=== PATIENT | female | born 1945 | race Caucasian/White ===

== ENCOUNTER 2018-04-05 07:32 | Observation (INO) | payer OTHER ==
[2018-04-05 08:12] LABS: Protime INR 1.15
[2018-04-05 08:13] LABS: Absolute Lymphocytes (CBC) 1.1 K/uL (0.7-4.9); Absolute Monocytes 0.7 K/uL (0.1-1.3); Absolute Neutrophil 3.7 K/uL (1.8-8.0); Basophils % 0.5 % (0-1.3); Eosinophils % 0.6 % (0-4.4); Hematocrit 23.5 % (36.0-45.0); MPV 7.2 fL (7.6-11.3); Monocytes % 12.7 % (3.3-12.3); RBC Red Blood Cell Count 2.34 M/uL (3.86-4.86)
[2018-04-05 08:26] LABS: ALT/SGPT 17 U/L (12-78); AST/SGOT 64 U/L (15-37); Albumin 3.2 g/dL (3.4-5.0); Alkaline Phosphatase 93 U/L (45-117); BUN Blood Urea Nitrogen 14 mg/dL (7-18); Bicarbonate 25 mmol/L (21-32); Bilirubin Direct 0.1 mg/dL (0-0.2); Bilirubin Total 0.4 mg/dL (0.2-1.0); Glucose Level 130 mg/dL (74-106); Magnesium 2.3 mg/dL (1.8-2.4); Potassium 3.8 mmol/L (3.5-5.1); Protein, Total 6.8 g/dL (6.4-8.2); Sodium Level 143 mmol/L (136-145); Troponin (Emerg Dept Use Only) < 0.02 ng/mL (0.0-0.045)
--- NOTE | 2018-04-05 08:57 | RAD REPORT ---
EXAM DESCRIPTION: RAD - Chest Single View - 04/05/2018 8:06 am CLINICAL HISTORY: fatigue Chest pain. COMPARISON: Chest Pa And Lat (2 Views) dated 10/01/2017; CHEST SINGLE VIEW dated 10/30/2014; CHEST SIN GLE VIEW dated 11/04/2013; CHEST SINGLE VIEW dated 02/25/2012; Sinus 3/+ Views dated 10/01/2017; Chest F or Pe Angio dated 02/09/2018 FINDINGS: Portable technique limits examination quality. The lungs are grossly clear. The heart is normal in size. Diffuse sclerosis of the osseous structures noted.Port catheter is in place, unchanged. Right upper lobe gallstone. IMPRESSION: No acute intrathoracic process suspected.
[2018-04-05 09:13] LABS: Platelet Estimate ADEQ
[2018-04-05 09:14] LABS: Blood Morphology Comment NOT SEEN (NOT SEEN)
--- NOTE | 2018-04-05 09:21 | EDPHYS ---
Physician Documentation [facility] Name: Carmen Lima Age: 73 yrs Sex: Female : 1945 Arrival Date: 04/05/2018 Time: 07:34 Bed 7 Private MD: ED Physician Steven Soler HPI: 04/05 07:36 This 73 yrs old Female presents to ER via Unassigned with complaints of ps1 fatigue and pale. 07:36 Patient has metastatic stage 4 breast CA. Patient of Pant. Recent Neupogen shot. Was ps1 supposed to start chemo and Fe infusions for anemia. Now presenting weak and fatigued. No fever, cough, or urinary complaints. No CP. No hx of transfusions. Had flu-like illness earlier in the month. . Historical: - Allergies: 07:53 PENICILLINS; ca1 - Home Meds: 07:53 [place] Thyroid 15 mg Oral tab 15 mg daily [Active]; ca1 - PMHx: 07:53 Thyroid problem; Cancer, Breast; ca1 - PSHx: 07:53 Mastectomy, Left; Hysterectomy; Bladder Sling; ca1 - Immunization history:: Pneumococcal vaccine is not up to date. - Social history:: Smoking status: Patient/guardian denies using tobacco. - Ebola Screening: : No symptoms or risks identified at this time. ROS: 07:36 ENT: Negative for injury, pain, and discharge, Neck: Negative for injury, pain, and ps1 swelling, Cardiovascular: Negative for chest pain, palpitations, and edema, Respiratory: Negative for shortness of breath, cough, wheezing, and pleuritic chest pain, Abdomen/GI: Negative for abdominal pain, nausea, vomiting, diarrhea, and constipation, MS/Extremity: Negative for injury and deformity, Neuro: Negative for headache, weakness, numbness, tingling, and seizure. 07:36 Constitutional: Positive for fatigue, malaise. 07:36 Skin: Positive for pallor. Exam: 07:36 Constitutional: This is a well developed, well nourished patient who is awake, alert, ps1 and in no acute distress. Head/Face: Normocephalic, atraumatic. Eyes: Pupils equal round and reactive to light, extra-ocular motions intact. Lids and lashes normal. Conjunctiva and sclera are non-icteric and not injected. Cardiovascular: Regular rate and rhythm. No gallops, murmurs, or rubs. Normal PMI, no JVD. No pulse deficits. Respiratory: Lungs have equal breath sounds bilaterally, clear to auscultation and percussion. No rales, rhonchi or wheezes noted. No increased work of breathing, no retractions or nasal flaring. Abdomen/GI: Soft, non-tender, with normal bowel sounds. No distension or tympany. No guarding or rebound. No evidence of tenderness throughout. MS/ Extremity: Pulses equal, no cyanosis. Neurovascular intact. Full, normal range of motion. Neuro: Awake and alert, GCS 15, oriented to person, place, time, and situation. Cranial nerves II-XII grossly intact. Sensory grossly intact. Psych: Awake, alert, with orientation to person, place and time. Behavior, mood, and affect are within normal limits. 07:36 Chest/axilla: Inspection: normal, Palpation: is normal, post mastectomy, has port in right chest. 07:36 Skin: Appearance: Pallor. Vital Signs: 07:35 BP 133 / 59; Pulse 85; Resp 18; Temp 97.9; Pulse Ox 100% on R/A; Weight 52.16 kg; ca1 Height 5 ft. 2 in. (157.48 cm); Pain 0/10; 08:44 BP 121 / 55; Pulse 81; Resp 20; Pulse Ox 98% on R/A; ca1 09:29 BP 118 / 58; Pulse 80; Resp 19; Pulse Ox 100% on R/A; ca1 10:12 BP 113 / 61; Pulse 85; Resp 19; Pulse Ox 100% on R/A; ca1 10:41 BP 122 / 61; Pulse 91; Resp 19; Pulse Ox 100% on R/A; ca1 11:22 BP 117 / 58; Pulse 83; Resp 17; Pulse Ox 97% on R/A; ca1 07:35 Body Mass Index 21.03 (52.16 kg, 157.48 cm) ca1 MDM: 07:51 Patient medically screened. ps1 04/05 07:40 Order name: CBC with Diff; Complete Time: 09:15 ps1 04/05 07:40 Order name: LFT's; Complete Time: 08:59 ps1 04/05 07:40 Order name: Magnesium; Complete Time: 08:59 ps1 04/05 07:40 Order name: PT-INR; Complete Time: 08:59 ps1 04/05 07:40 Order name: Troponin (emerg Dept Use Only); Complete Time: 08:59 ps1 04/05 07:40 Order name: CMP; Complete Time: 08:59 ps1 04/05 07:40 Order name: XRAY Chest (1 view); Complete Time: 08:59 ps1 04/05 07:40 Order name: Cardiac monitoring; Complete Time: 07:43 ps1 04/05 07:40 Order name: EKG - Nurse/Tech; Complete Time: 08:00 ps1 04/05 07:40 Order name: IV Saline Lock; Complete Time: 07:55 ps1 04/05 07:40 Order name: Type And Screen ps1 04/05 08:11 Order name: EKG Electrocardiogram; Complete Time: 09:50 EDMS 04/05 08:53 Order name: ABO/RH no charge; Complete Time: 08:59 EDMS 04/05 09:13 Order name: Manual Differential; Complete Time: 09:15 EDMS 04/05 07:40 Order name: Labs collected and sent; Complete Time: 08:00 [facility] 04/05 07:40 Order name: O2 Per Protocol; Complete Time: 07:43 ps1 04/05 07:40 Order name: O2 Sat Monitoring; Complete Time: 07:43 ps1 Administered Medications: No medications were administered Disposition: 04/05/18 09:20 Hospitalization ordered by Domitila Naik for Observation. Preliminary diagnosis is Symptomatic anemia. - Bed requested for Telemetry/MedSurg (observation). - Status is Observation. ca1 - Condition is Fair. - Problem is chronic. - Symptoms have worsened. UTI on Admission? No Signatures: Dispatcher [employer] EDMS Char Ptits Phillip, MD MD ps1 Miracle Roman RN RN ca1 Corrections: (The following items were deleted from the chart) 10:53 09:20 Hospitalization Ordered by Domitila Naik MD for Observation. Preliminary bd diagnosis is Symptomatic anemia. Bed requested for Telemetry/MedSurg (observation). Status is Observation. Condition is Fair. Problem is chronic. Symptoms have worsened. UTI on Admission? No. ps1 11:28 10:53 04/05/2018 09:20 Hospitalization Ordered by Domitila Naik MD for Observation. ca1 Preliminary diagnosis is Symptomatic anemia. Bed requested for Telemetry/MedSurg (observation). Status is Observation. Condition is Fair. Problem is chronic. Symptoms have worsened. UTI on Admission? No. bd
--- NOTE | 2018-04-05 09:21 | ER ---
Nurse's Notes [facility] Name: Carmen iLma Age: 73 yrs Sex: Female : 1945 Arrival Date: 04/05/2018 Time: 07:34 Bed 7 Private MD: Diagnosis: Symptomatic anemia Presentation: 04/05 07:35 Presenting complaint: EMS states: patient is a stage 4 Breast Cancer patient and has ca1 not started Chemo yet. She has been having diarrhea for more than 3 days and been weak for 3 days now. States also feeling dizzy. 07:35 Transition of care: patient was not received from another setting of care. Onset of ca1 symptoms was April 03, 2018. Risk Assessment: Do you want to hurt yourself or someone else? Patient reports no desire to harm self or others. Initial Sepsis Screen: Does the patient meet any 2 criteria? No. Patient's initial sepsis screen is negative. Does the patient have a suspected source of infection? No. Patient's initial sepsis screen is negative. Care prior to arrival: Medication(s) given: Normal saline infusion, 250 IV initiated. 20 GA, in the right antecubital area. 07:35 Method Of Arrival: EMS: [facility] ca1 07:35 Acuity: GWEN 3 ca1 Historical: - Allergies: 07:53 PENICILLINS; ca1 - Home Meds: 07:53 [place] Thyroid 15 mg Oral tab 15 mg daily [Active]; ca1 - PMHx: 07:53 Thyroid problem; Cancer, Breast; ca1 - PSHx: 07:53 Mastectomy, Left; Hysterectomy; Bladder Sling; ca1 - Immunization history:: Pneumococcal vaccine is not up to date. - Social history:: Smoking status: Patient/guardian denies using tobacco. - Ebola Screening: : No symptoms or risks identified at this time. Screenin:53 Abuse screen: Denies threats or abuse. Denies injuries from another. Nutritional ca1 screening: No deficits noted. Tuberculosis screening: No symptoms or risk factors identified. Fall Risk None identified. Assessment: 07:48 General: Appears in no apparent distress. Behavior is calm, cooperative, appropriate ca1 for age. Pain: Denies pain. Neuro: Level of Consciousness is awake, alert, obeys commands, Oriented to person, place, time, situation. Neuro: Reports dizziness. Cardiovascular: Heart tones S1 S2 present Capillary refill < 3 seconds Patient's skin is warm and dry. Respiratory: Airway is patent Trachea midline Respiratory effort is even, unlabored, Respiratory pattern is regular, symmetrical, Breath sounds are clear bilaterally. GI: Abdomen is flat, non-distended, Bowel sounds present X 4 quads. Abd is soft and non tender X 4 quads. : No signs and/or symptoms were reported regarding the genitourinary system. EENT: No signs and/or symptoms were reported regarding the EENT system. Derm: Skin is intact, Skin is dry, Skin is pale, Skin temperature is warm. Musculoskeletal: Circulation, motion, and sensation intact. Capillary refill < 3 seconds. 08:44 Reassessment: Patient appears in no apparent distress at this time. No changes from ca1 previously documented assessment. Patient and/or family updated on plan of care and expected duration. Pain level reassessed. Patient is alert, oriented x 3, equal unlabored respirations, skin warm/dry/pink. 09:29 Reassessment: Patient appears in no apparent distress at this time. Patient and/or ca1 family updated on plan of care and expected duration. Pain level reassessed. Patient is alert, oriented x 3, equal unlabored respirations, skin warm/dry/pink. at bedside, reading the Bible. 10:12 Reassessment: Patient appears in no apparent distress at this time. Patient and/or ca1 family updated on plan of care and expected duration. Pain level reassessed. Patient is alert, oriented x 3, equal unlabored respirations, skin warm/dry/pink. Awaiting admitting orders. 10:41 Reassessment: Patient appears in no apparent distress at this time. Patient and/or ca1 family updated on plan of care and expected duration. Pain level reassessed. Patient is alert, oriented x 3, equal unlabored respirations, skin warm/dry/pink. Awaiting room assignment. Family still at bedside. 11:02 Reassessment: Called 2nd floor for report. Nurse will call back when ready. ca1 11:20 Reassessment: Pt states she is lactose intolerant. Called and informed nurse on 2nd ca1 floor. 11:22 Reassessment: Patient appears in no apparent distress at this time. Patient is alert, ca1 oriented x 3, equal unlabored respirations, skin warm/dry/pink. Vital Signs: 07:35 BP 133 / 59; Pulse 85; Resp 18; Temp 97.9; Pulse Ox 100% on R/A; Weight 52.16 kg; ca1 Height 5 ft. 2 in. (157.48 cm); Pain 0/10; 08:44 BP 121 / 55; Pulse 81; Resp 20; Pulse Ox 98% on R/A; ca1 09:29 BP 118 / 58; Pulse 80; Resp 19; Pulse Ox 100% on R/A; ca1 10:12 BP 113 / 61; Pulse 85; Resp 19; Pulse Ox 100% on R/A; ca1 10:41 BP 122 / 61; Pulse 91; Resp 19; Pulse Ox 100% on R/A; ca1 11:22 BP 117 / 58; Pulse 83; Resp 17; Pulse Ox 97% on R/A; ca1 07:35 Body Mass Index 21.03 (52.16 kg, 157.48 cm) ca1 ED Course: 07:34 Patient arrived in ED. jl7 07:35 Stveen Soler MD is Attending Physician. ps1 07:35 Arm band placed on right wrist. ca1 07:42 Miracle Roman RN is Primary Nurse. ca1 07:46 Triage completed. ca1 07:53 Patient has correct armband on for positive identification. Placed in gown. Bed in low ca1 position. Call light in reach. Side rails up X2. security monitor on. Pulse ox on. NIBP on. Warm blanket given. 07:53 Maintain EMS IV. Dressing intact. Good blood return noted. Site clean \T\ dry. Gauge \T\ ca 1 site: g20 at [facility]. 08:01 X-ray completed. Portable x-ray completed in exam room. Patient tolerated procedure jb2 well. 08:03 XRAY Chest (1 view) In Process Unspecified. EDMS 08:03 EKG done, by bench lay out technician. reviewed by Steven Soler MD. tc 09:19 Domitila Naik MD is Hospitalizing Provider. ps1 10:40 No provider procedures requiring assistance completed. Patient admitted, IV remains in ca1 place. Administered Medications: No medications were administered Outcome: 09:20 Decision to Hospitalize by Provider. ps1 11:20 Admitted to Med/surg accompanied by tech, via wheelchair, room 212, with chart, Report ca1 called to Hyun Amezquita RN 11:20 Condition: stable 11:20 Instructed on the need for admit, Demonstrated understanding of instructions. 11:28 Patient left the ED. ca1 Signatures: Dispatcher [employer] EDMS Nagi Kaplan2 Davina Redman, retirement officer EKG [facility] Delma Prasad RN RN jl7 Steven Soler MD MD ps1 Miracle Roman RN RN ca1
[2018-04-05] MEDS ORDERED: ONDANSETRON 4 MG/2 ML VIAL IV PRN (11:46)
--- NOTE | 2018-04-05 11:59 | EKG ---
Test Date: 2018-04-05 Test Time: 07:53:42 Franchise Manager: MIGUEL MEASUREMENT RESULTS: Intervals: Rate: 77 NC: 150 QRSD: 72 QT: 392 QTc: 443 [place]: P: 81 NC: 150 QRS: 80 T: 80 INTERPRETIVE STATEMENTS: Normal sinus rhythm Nonspecific ST abnormality Abnormal ECG Compared to ECG 10/30/2014 16:12:15 ST (T wave) deviation now present Electronically Signed On 04-05-18 11:58:21 TIRE RECAPPING MACHINE OPERATOR by Baldemar Moreno
[2018-04-05] MEDS: NA CHLORIDE 0.9% 1,000 ML IV SCH ×2 (12:05→23:08)
[2018-04-05 14:43] VITALS: BMI 20.9
[2018-04-05] MEDS: ACETAMINOPHEN 500 MG TAB PO PRN (16:56)
--- NOTE | 2018-04-05 17:18 | P.HP ---
Certification for Inpatient Patient admitted to: Observation With expected LOS: <2 Midnights Patient will require the following post-hospital care: None Practitioner: I am a practitioner with admitting privileges, knowledge of patient current condition, hospital course, and medical plan of care. Services: Services provided to patient in accordance with Admission requirements found in Title 42 Section 412.3 of the Code of Federal Regulations Patient History Date of Service: 04/05/18 Primary Care Provider: Dr Campbell Reason for admission: Weakness History of Present Illness: 73 y/o F with Pmhx of Stage 4 Breast CA s/p Mastectomy, Mets to bone and liver, Hypothyrodism and Anemia who presented to the ER c/o Weakness and diarrhea. Patient stated she has been feeling unwell for quite some time but recently started noticing she was having more weakness and diarrhea. Diarrhea has resolved now but Weakness continues. She was recently seen by her oncologist and was prescribed neupogen for Leukopenia and Antibiotics to prevent infection. Pt was taking the medication however states that neupogen would make her sick and give SCANLON. Her last dose for abx was today however she was not able to take it. Pt has been off the chemo for past 3 week due to Anemia and being weak. She has been taking chemo since 2012 on/off. She was going to be switched to the diff Chemo drug once she is restarted. Pt states along with weakness and diarrhea she has been having low grade fever of 99.7 and cough for over 6 months now. Denies having Chest pain, SOB, N/V or Abd pain at this time. Diarrhea is loose in nature and no blood is noted. In the ER pt was found to be anemic, and thus was admitted to the hospital for further care and treatment Allergies codeine Allergy (Verified 10/30/14 20:03) nausea iodine Allergy (Verified 04/05/18 17:11) Rash Iodine and Iodide Containing Produc Allergy (Verified 04/05/18 12:19) Rash Penicillins Allergy (Verified 10/30/14 20:03) Rash Home Medications: Thyroid,Pork [[place] Thyroid] 15 mg PO [id number] 10/30/14 - Past Medical/Surgical History Has patient received pneumonia vaccine in the past: No Diabetic: No -: Breast Cancer, Oncology-Dr. Kinney, Originally seen at [facility], [id number] -: Lymphedema -: Hypothyroidism -: Diverticulosis -: Metastasis to the bone -: Lactose intolerance -: Right chest port a cath -: Left Mastectomy -: Hysterectomy with BSO -: Bladder suspension Psychosocial/ Personal History: for 22 years, 5 children, Previously worked as a brand marketing manager for [employer] - Family History Father -: Diabetes, Cancer Notes: colon Ca. stomach Ca Mother -: Hypertension - Social History Smoking Status: Never smoker Alcohol use: No CD- Drugs: No Caffeine use: No Place of Residence: Home Review of Systems 10-point ROS is otherwise unremarkable Physical Examination - Vital Signs Temperature: 97.5 F Blood Pressure: 136/65 Pulse: 85 Respirations: 16 Pulse Ox (%): 96 - Physical Exam General: Alert, In no apparent distress HEENT: Atraumatic, PERRLA, Mucous membr. moist/pink, EOMI, Sclerae nonicteric Neck: Supple, 2+ carotid pulse no bruit, No LAD, Without JVD or thyroid abnormality Respiratory: Clear to auscultation bilaterally, Normal air movement Cardiovascular: Regular rate/rhythm, Normal S1 S2 Gastrointestinal: Normal bowel sounds, No tenderness Musculoskeletal: No tenderness Integumentary: No rashes Neurological: Normal gait, Normal speech, Normal strength at 5/5 x4 extr, Normal tone, Normal affect Lymphatics: No axilla or inguinal lymphadenopathy - Studies Laboratory Data (last 24 hrs) 04/05/18 07:50: PT 13.6 H, INR 1.15 04/05/18 07:50: Sodium 143, Potassium 3.8, BUN 14, Creatinine 0.74, Glucose 130 H, Magnesium 2.3, Total Bilirubin 0.4, AST 64 H, ALT 17, Alkaline Phosphatase 93 04/05/18 07:50: WBC 5.6, Hgb 8.0 L, Hct 23.5 L, Plt Count 165 Assessment and Plan - Problems (Diagnosis) (1) Weakness Current Visit: Yes Status: Acute Plan: Most Likely 2.2 to Advancing CA/Anemia and Diarrhea -IV fluids for now -PT consulted. Awaiting reccs -F.u with Dr Kinney (2) Diarrhea Current Visit: Yes Status: Acute Plan: Diarrhea Now resolved. -IV fluids for now -Monitor closely -Will get stool culture if needed Qualifiers: Diarrhea type: unspecified type Qualified Code(s): R19.7 - Diarrhea, unspecified (3) Breast cancer Onset Date: 10/31/14 Current Visit: No Status: Chronic Plan: Stage IV breast CA with Mets to bone and liver -Diagnosed at [facility] in 2012 -S.p Mastectomy and has been on Chemo. -Currently chemo on hold due to Weakness and anemia -F.u with oncology Qualifiers: Breast location: unspecified site of breast Estrogen receptor status: unspecified Patient sex: female Laterality: unspecified laterality Qualified Code(s): C50.919 - Malignant neoplasm of unspecified site of unspecified female breast (4) Hypothyroidism Onset Date: 10/31/14 Current Visit: No Status: Chronic Plan: Restart Home medication Qualifiers: Hypothyroidism type: acquired Qualified Code(s): E03.9 - Hypothyroidism, unspecified Discharge Plan: Home Plan to discharge in: 48 Hours - Advance Directives Does patient have a Living Will: Yes Does patient have a Durable POA for Healthcare: Yes - Code Status/Comfort Care Code Status Assessed: Yes Critical Care: No
[2018-04-06] MEDS: ACETAMINOPHEN 500 MG TAB PO PRN ×2 (03:56→10:36)
[2018-04-06 04:47] LABS: Urine Appearance CLEAR; Urine Bilirubin NEGATIVE (NEG); Urine Blood NEGATIVE (NEG); Urine Color YELLOW; Urine Glucose NEGATIVE (NEG); Urine Protein NEGATIVE (NEG); Urine Urobilinogen 0.2 mg/dL (0.2-1.0)
[2018-04-06 04:58] LABS: Urine Microscopic Reflex NO UMIC
[2018-04-06] MEDS ORDERED: THYROID PORK 15 MG PO SCH (06:00)
[2018-04-06] MEDS ORDERED: THYROID 30 MG TAB PO SCH (06:00)
[2018-04-06 06:12] LABS: Absolute Lymphocytes (CBC) 1.3 K/uL (0.7-4.9); Absolute Monocytes 0.6 K/uL (0.1-1.3); Absolute Neutrophil 3.1 K/uL (1.8-8.0); Basophils % 0.6 % (0-1.3); Eosinophils % 0.5 % (0-4.4); Hematocrit 21.4 % (36.0-45.0); Monocytes % 12.4 % (3.3-12.3); RBC Red Blood Cell Count 2.13 M/uL (3.86-4.86)
[2018-04-06 06:23] LABS: ALT/SGPT 14 U/L (12-78); AST/SGOT 60 U/L (15-37); Alkaline Phosphatase 85 U/L (45-117); BUN Blood Urea Nitrogen 11 mg/dL (7-18); Bicarbonate 25 mmol/L (21-32); Bilirubin Total 0.4 mg/dL (0.2-1.0); Glucose Level 96 mg/dL (74-106); Potassium 3.9 mmol/L (3.5-5.1); Protein, Total 6.2 g/dL (6.4-8.2); Sodium Level 146 mmol/L (136-145)
[2018-04-06] MEDS: NA CHLORIDE 0.9% 1,000 ML IV SCH (07:46)
[2018-04-06] MEDS ORDERED: NA CHLORIDE 0.9% 250 ML ONE (10:35)
[2018-04-06 11:42] VITALS: O2SAT 96
[2018-04-06 14:45] VITALS: BP 128/63; TEMP 98.4
--- NOTE | 2018-04-06 16:04 | P.SSS ---
Patient History Date of Service: 04/06/18 Primary Care Provider: Dr Campbell Reason for admission: Weakness History of Present Illness: 73 y/o F with Pmhx of Stage 4 Breast CA s/p Mastectomy, Mets to bone and liver, Hypothyrodism and Anemia who presented to the ER c/o Weakness and diarrhea. Patient stated she has been feeling unwell for quite some time but recently started noticing she was having more weakness and diarrhea. Diarrhea has resolved now but Weakness continues. She was recently seen by her oncologist and was prescribed neupogen for Leukopenia and Antibiotics to prevent infection. Pt was taking the medication however states that neupogen would make her sick and give SCANLON. Her last dose for abx was today however she was not able to take it. Pt has been off the chemo for past 3 week due to Anemia and being weak. She has been taking chemo since 2011 on/off. She was going to be switched to the diff Chemo drug once she is restarted. Pt states along with weakness and diarrhea she has been having low grade fever of 99.7 and cough for over 6 months now. Denies having Chest pain, SOB, N/V or Abd pain at this time. Diarrhea is loose in nature and no blood is noted. In the ER pt was found to be anemic, and thus was admitted to the hospital for further care and treatment Allergies codeine Allergy (Verified 10/30/14 20:03) nausea iodine Allergy (Verified 04/05/18 17:11) Rash Iodine and Iodide Containing Produc Allergy (Verified 04/05/18 12:19) Rash Penicillins Allergy (Verified 10/30/14 20:03) Rash Home Medications: Thyroid,Pork [[place] Thyroid] 15 mg PO [id number] 10/30/14 - Past Medical/Surgical History Has patient received pneumonia vaccine in the past: No Diabetic: No -: Breast Cancer, Oncology-Dr. Kinney, Originally seen at [facility], [id number] -: Lymphedema -: Hypothyroidism -: Diverticulosis -: Metastasis to the bone -: Lactose intolerance -: Right chest port a cath -: Left Mastectomy -: Hysterectomy with BSO -: Bladder suspension Psychosocial/ Personal History: for 22 years, 5 children, Previously worked as a government affairs manager for [employer] - Family History Father -: Diabetes, Cancer Notes: colon Ca. stomach Ca Mother -: Hypertension - Social History Smoking Status: Never smoker Alcohol use: No CD- Drugs: No Caffeine use: No Place of Residence: Home Review of Systems 10-point ROS is otherwise unremarkable Physical Examination - Vital Signs Temperature: 98.4 F Blood Pressure: 128/63 Pulse: 85 Respirations: 16 Pulse Ox (%): 98 - Physical Exam General: Alert, In no apparent distress HEENT: Atraumatic, PERRLA, Mucous membr. moist/pink, EOMI, Sclerae nonicteric Neck: Supple, 2+ carotid pulse no bruit, No LAD, Without JVD or thyroid abnormality Respiratory: Clear to auscultation bilaterally, Normal air movement Cardiovascular: Regular rate/rhythm, Normal S1 S2 Gastrointestinal: Normal bowel sounds, No tenderness Musculoskeletal: No tenderness Integumentary: No rashes Neurological: Normal gait, Normal speech, Normal strength at 5/5 x4 extr, Normal tone, Normal affect Lymphatics: No axilla or inguinal lymphadenopathy - Diagnosis (Problem(s)) (1) Weakness Onset Date: 04/06/18 Current Visit: Yes Status: Resolved (2) Diarrhea Onset Date: 04/06/18 Current Visit: Yes Status: Resolved Qualifiers: Diarrhea type: unspecified type Qualified Code(s): R19.7 - Diarrhea, unspecified (3) Breast cancer Onset Date: 10/31/14 Current Visit: No Status: Chronic Plan: Stage IV breast CA with Mets to bone and liver -Diagnosed at [facility] in 2011 -S.p Mastectomy and has been on Chemo. -Currently chemo on hold due to Weakness and anemia -F.u with oncology Qualifiers: Breast location: unspecified site of breast Estrogen receptor status: unspecified Patient sex: female Laterality: unspecified laterality Qualified Code(s): C50.919 - Malignant neoplasm of unspecified site of unspecified female breast (4) Hypothyroidism Onset Date: 10/31/14 Current Visit: No Status: Chronic Qualifiers: Hypothyroidism type: acquired Qualified Code(s): E03.9 - Hypothyroidism, unspecified Treatment Summary: Overall during the hospital stay patient remained stable Initially patient was admitted to the hospital for generalized weakness and possibility of anemia. Patient had a hemoglobin of 10.5 on admission. Which did drop down to 6.8 on day 2 of admission. Some of it could be hemodilution all. Patient did not have any signs of GI bleeding. Patient was transfused 1 unit. Her anemia is most likely secondary to bone marrow suppression secondary to chemotherapy medication. Patient hemoglobin did increase more than 8. Patient worked with physical therapy here in the hospital for her generalized weakness did well overall. Patient was feeling much better, was able to ambulate and tolerate her diet and thus was discharged home and was asked to follow up with oncology in primary care provider in about 1-2 days post discharge. - Disposition Disposition: ROUTINE DISCHARGE Condition: GOOD Diet: Regular Activity: Ad star
[2018-04-06 16:29] LABS: Hematocrit 28.4 % (36.0-45.0)
== END 2018-04-06 18:25 | disposition home or self-care (01) ==
LOC: ER 07:32 → ERHOLD 10:19 → 2ND 11:21
PROVIDERS: ADMIT Family Medicine; ATTEND Family Medicine
PROC: 30233N1 Transfusion of Nonautologous Red Blood Cells into Peripheral Vein, Percutaneous Approach (ICD-10-PCS; principal; 2018-04-06)
DX: D64.9 Anemia, unspecified (principal); R53.1 Weakness; R19.7 Diarrhea, unspecified; C50.919 Malignant neoplasm of unspecified site of unspecified female breast; C78.7 Secondary malignant neoplasm of liver and intrahepatic bile duct; C79.51 Secondary malignant neoplasm of bone; E03.9 Hypothyroidism, unspecified; Z88.0 Allergy status to penicillin
CPT/HCPCS: 36415; 36430; 71045; 80053; 80076; 81003; 83735; 84484; 85014; 85018; 85025; 85610; 86850; 86900; 86901; 93005; 97163; 99285; G0378; J7030; P9016

== ENCOUNTER 2019-01-12 08:54 | Emergency (ER) | payer OTHER ==
[2019-01-12] MEDS ORDERED: LIDOCAINE JELLY 2%- 5 ML TUBE ONE (11:34)
--- NOTE | 2019-01-12 11:37 | RAD REPORT ---
EXAM DESCRIPTION: RAD - Abdomen Acute Series - 01/12/2019 11:14 am CLINICAL HISTORY: Abd pain;Constipation COMPARISON: Chest Single View dated 04/05/2018; Chest Pa And Lat (2 Views) dated 10/01/2017; CHEST SIN GLE VIEW dated 10/30/2014; CHEST SINGLE VIEW dated 11/04/2013 FINDINGS: The lungs appear clear. Cardiac size is normal. A right-sided port catheter is in place. A large amount of stool appears retained in the rectal vault suggesting fecal impaction. No bowel obst ruction or pneumoperitoneum. Diffuse sclerosis is present with areas of lucency throughout the bony s tructures compatible with metastatic disease. Gallstone is likely present in the right upper quadrant . IMPRESSION: Fecal retention is suspected in the rectum. Significant bony metastatic disease.
[2019-01-12 12:17] LABS: Absolute Lymphocytes (CBC) 0.4 K/uL (0.7-4.9); Basophils % 0.6 % (0-1.3); Hematocrit 30.2 % (36.0-45.0); Lymphocytes % 20.2 % (15.3-44.8); MPV 6.4 fL (7.6-11.3); RBC Red Blood Cell Count 3.11 M/uL (3.86-4.86)
[2019-01-12 12:34] LABS: ALT/SGPT 29 U/L (12-78); AST/SGOT 46 U/L (15-37); Albumin 3.7 g/dL (3.4-5.0); Alkaline Phosphatase 76 U/L (45-117); BUN Blood Urea Nitrogen 23 mg/dL (7-18); Bicarbonate 28 mmol/L (21-32); Bilirubin Direct 0.2 mg/dL (0-0.2); Bilirubin Total 0.8 mg/dL (0.2-1.0); Glucose Level 119 mg/dL (74-106); Lipase 61 U/L (73-393); Potassium 3.9 mmol/L (3.5-5.1); Protein, Total 6.2 g/dL (6.4-8.2); Sodium Level 142 mmol/L (136-145)
--- NOTE | 2019-01-12 14:11 | ER ---
Nurse's Notes [facility] Name: Carmen Lima Age: 73 yrs Sex: Female : 1945 Arrival Date: 01/12/2019 Time: 08:56 Bed 14 Private MD: Diagnosis: Constipation, unspecified;Weakness Presentation: 01/12 08:57 Presenting complaint: EMS states: Abdominal pain x 2 days. Last BM was 5 days ago. hb Transition of care: patient was not received from another setting of care. Onset of symptoms was January 11, 2019. Risk Assessment: Do you want to hurt yourself or someone else? Patient reports no desire to harm self or others. Initial Sepsis Screen: Does the patient meet any 2 criteria? No. Patient's initial sepsis screen is negative. Does the patient have a suspected source of infection? No. Patient's initial sepsis screen is negative. Care prior to arrival: None. 08:57 Method Of Arrival: EMS: [facility] 08:57 Acuity: GWEN 3 hb Historical: - Allergies: 08:58 PENICILLINS; hb - Home Meds: 08:58 [place] Thyroid 15 mg Oral tab 15 mg daily [Active]; hb - PMHx: 08:58 Cancer, Breast; Thyroid problem; hb - PSHx: 08:58 Hysterectomy; Bladder Sling; Mastectomy, Left; hb - Immunization history:: Adult Immunizations up to date. - Social history:: Smoking status: Patient/guardian denies using tobacco. - Ebola Screening: : No symptoms or risks identified at this time. Screenin:08 Abuse screen: Denies threats or abuse. Denies injuries from another. Nutritional hb screening: No deficits noted. Tuberculosis screening: No symptoms or risk factors identified. Fall Risk Total Bravo Fall Scale indicates Low Risk Score (25-44 pts). Fall prevention measures have been instituted. Side Rails Up X 2 Frequent Obs/Assesments occuring As available Patient and Family Educated on Fall Prevention Program and strategies. Assessment: 09:00 General: Appears in no apparent distress. Behavior is calm, cooperative. Pain: Pain hb currently is 4 out of 10 on a pain scale. Neuro: Level of Consciousness is awake, alert, obeys commands, Oriented to person, place, situation. Cardiovascular: Capillary refill < 3 seconds Patient's skin is warm and dry. Respiratory: Airway is patent Respiratory effort is even, unlabored, Respiratory pattern is regular, symmetrical, Breath sounds are clear bilaterally. GI: Abdomen is non-distended, Bowel sounds present X 4 quads. Abd is soft and non tender X 4 quads. : No signs and/or symptoms were reported regarding the genitourinary system. EENT: No signs and/or symptoms were reported regarding the EENT system. Derm: Skin is intact, Skin is dry, Skin is pale, Skin temperature is warm. Musculoskeletal: No signs and/or symptoms reported regarding the musculoskeletal system. 10:00 Reassessment: Patient appears in no apparent distress at this time. Patient and/or hb family updated on plan of care and expected duration. Pain level reassessed. 11:00 Reassessment: Patient and/or family updated on plan of care and expected duration. Pain aj1 level reassessed. General: Appears in no apparent distress. comfortable, Behavior is calm, cooperative, appropriate for age. Neuro: Level of Consciousness is awake, alert, obeys commands, Oriented to person, place, time, situation. Cardiovascular: Patient's skin is warm and dry. Respiratory: Airway is patent Respiratory effort is even, unlabored, Respiratory pattern is regular, symmetrical. GI: Abdomen is non-distended, Bowel sounds present X 4 quads. Abd is soft and non tender X 4 quads. Derm: Skin is pale. Musculoskeletal: No signs and/or symptoms reported regarding the musculoskeletal system. Circulation, motion, and sensation intact. 12:00 Reassessment: Patient appears in no apparent distress at this time. No changes from aj1 previously documented assessment. Patient and/or family updated on plan of care and expected duration. Pain level reassessed. Patient is alert, oriented x 3, equal unlabored respirations, skin warm/dry/pink. 13:00 Reassessment: Patient appears in no apparent distress at this time. No changes from aj1 previously documented assessment. Patient and/or family updated on plan of care and expected duration. Pain level reassessed. Patient is alert, oriented x 3, equal unlabored respirations, skin warm/dry/pink. 14:03 Reassessment: Dr. Caceres at bedside. aj1 14:30 Reassessment: Dr. Caceres states that patient's has been concerned that she is aj1 not as alert as she usually is. Order received to let patient rest for a bit, then reassess. If patient's mental status is normal she may be discharged. 15:30 Reassessment: Patient's states that she seems normal to him and they are ready aj1 to be discharged. Patient is unsure what her Port-A-Cath is typically packed with. 16:15 Reassessment: Spoke with staff at [facility] where patient gets her aj1 treatments, states that they usually flush the port-a-cath with 20cc NS and then pack it with 500 units of Heparin. Patient's Port-a-cath was then flushed with 20cc NS by me and packed with 500 units of Heparin, then Andrews needle was removed and site was covered with 2x2 and secured with tape. Patient tolerated well. Patient was assisted to private vehicle via wheelchair. Vital Signs: 08:58 BP 142 / 81; Pulse 68; Resp 16; Temp 98.9; Pulse Ox 100% on R/A; Weight 49.9 kg; Height hb 5 ft. 5 in. (165.10 cm); Pain 4/10; 10:00 BP 129 / 75; Pulse 85; Resp 18; Pulse Ox 98% on R/A; aj1 11:00 BP 131 / 64; Pulse 80; Resp 18; Pulse Ox 98% on R/A; aj1 12:00 BP 129 / 62; Pulse 80; Resp 18; Pulse Ox 99% on R/A; aj1 14:04 BP 144 / 78; Pulse 97; Resp 18; Pulse Ox 100% on R/A; aj1 15:00 BP 137 / 65; Pulse 88; Resp 18; Pulse Ox 97% on R/A; aj1 16:00 BP 129 / 69; Pulse 82; Resp 18; Pulse Ox 98% on R/A; aj1 08:58 Body Mass Index 18.30 (49.90 kg, 165.10 cm) hb ED Course: 08:56 Patient arrived in ED. hb 08:57 Triage completed. hb 08:58 Arm band placed on. hb 09:08 Dinora Coombs, RN is Primary Nurse. hb 09:09 Patient has correct armband on for positive identification. Bed in low position. Call light in reach. Side rails up X2. 09:22 Evan Caceres MD is Attending Physician. kdr 09:43 Cleaned of incontinence. hb 10:05 Report received from BUZZ Farias. aj1 10:15 Served as a aquatic habitat biologist during rectal exam. aj1 10:47 Patient moved to radiology via stretcher. 2 11:13 CT completed. Patient tolerated procedure well. Patient moved back from CT. 2 11:17 Abdomen Acute Series XRAY In Process Unspecified. EDMS 12:12 Accessed Port-a-Cath. using accessed w/ # 20 Andrews needle, ,sterile technique, per [facility] protocol. Good blood return. Flushes easily. 16:11 IV discontinued, intact, bleeding controlled, No redness/swelling at site. Pressure [facility] dressing applied. Administered Medications: 16:00 Drug: HEParin Flush 500 units Route: IVP; Site: Port-a-cath; [facility] Output: 09:40 Stool: 1 (Formed Stool) ; Total: 0ml. hb Outcome: 14:10 Discharge ordered by . kdr 16:18 Discharged to home ambulatory. aj1 16:18 Condition: good 16:18 Discharge instructions given to patient, family, Instructed on discharge instructions, follow up and referral plans. Demonstrated understanding of instructions, follow-up care. 16:19 Patient left the ED. [facility] Signatures: Dispatcher [employer] [facility] Es Avery RN RN aj1 Evan Caceres MD MD [facility] Dinora Coombs RN RN hb [place], [place] 2 Corrections: (The following items were deleted from the chart) 10:47 10:47 Report received from BUZZ Farias ajAshleigh aj
--- NOTE | 2019-01-12 14:11 | EDPHYS ---
Physician Documentation [facility] Name: Carmen Lima Age: 73 yrs Sex: Female : 1945 Arrival Date: 01/12/2019 Time: 08:56 Bed 14 Private MD: ED Physician Evan Caceres HPI: 01/12 11:04 This 73 yrs old Female presents to ER via EMS with complaints of Abdominal kdr Pain. 11:04 The patient presents with abdominal pain that is diffuse. Onset: The symptoms/episode kdr began/occurred gradually, 4 day(s) ago. 11:05 The symptoms do not radiate. Associated signs and symptoms: Pertinent positives: kdr nausea, Pertinent negatives: blood in stools, chest pain, constipation, diarrhea, dysuria, fever, headache, hematuria, palpitations, shortness of breath, vaginal discharge, vomiting, vomiting blood. The symptoms are described as achy, crampy, dull, vague. Modifying factors: The symptoms are alleviated by nothing, the symptoms are aggravated by movement. Severity of pain: At its worst the pain was mild moderate just prior to arrival, in the emergency department the pain is unchanged. The patient has experienced similar episodes in the past, a few times, but today's symptoms are worse, more painful. Dr. Kinney - routine care. Historical: - Allergies: 08:58 PENICILLINS; hb - Home Meds: 08:58 [place] Thyroid 15 mg Oral tab 15 mg daily [Active]; hb - PMHx: 08:58 Cancer, Breast; Thyroid problem; hb - PSHx: 08:58 Hysterectomy; Bladder Sling; Mastectomy, Left; hb - Immunization history:: Adult Immunizations up to date. - Social history:: Smoking status: Patient/guardian denies using tobacco. - Ebola Screening: : No symptoms or risks identified at this time. ROS: 11:06 Constitutional: Negative for fever, chills, and weight loss, Eyes: Negative for injury, kdr pain, redness, and discharge, Neck: Negative for injury, pain, and swelling, Cardiovascular: Negative for chest pain, palpitations, and edema, Respiratory: Negative for shortness of breath, cough, wheezing, and pleuritic chest pain, Back: Negative for injury and pain, : Negative for injury, bleeding, discharge, and swelling, MS/Extremity: Negative for injury and deformity, Skin: Negative for injury, rash, and discoloration, Neuro: Negative for headache, weakness, numbness, tingling, and seizure activity. Psych: Negative for depression, anxiety, suicide ideation, homicidal ideation, and hallucinations, Allergy/Immunology: Negative for hives, rash, and allergies, Endocrine: Negative for neck swelling, polydipsia, polyuria, polyphagia, and marked weight changes, Hematologic/Lymphatic: Negative for swollen nodes, abnormal bleeding, and unusual bruising. 11:06 Abdomen/GI: Positive for abdominal pain, nausea, Negative for diarrhea, constipation, Occasionally, she has loose from possible impaction and fecal incontinence . Exam: 11:06 Constitutional: This is a well developed, well nourished patient who is awake, alert, kdr and in no acute distress. Head/Face: Normocephalic, atraumatic. Eyes: Pupils equal round and reactive to light, extra-ocular motions intact. Lids and lashes normal. Conjunctiva and sclera are non-icteric and not injected. Cornea within normal limits. Periorbital areas with no swelling, redness, or edema. Neck: Trachea midline, no thyromegaly or masses palpated, and no cervical lymphadenopathy. Supple, full range of motion without nuchal rigidity, or vertebral point tenderness. No Meningismus. Chest/axilla: Normal chest wall appearance and motion. Nontender with no deformity. No lesions are appreciated. Cardiovascular: Regular rate and rhythm with a normal S1 and S2. No gallops, murmurs, or rubs. Normal PMI, no JVD. No pulse deficits. Respiratory: Lungs have equal breath sounds bilaterally, clear to auscultation and percussion. No rales, rhonchi or wheezes noted. No increased work of breathing, no retractions or nasal flaring. Back: No spinal tenderness. No costovertebral tenderness. Full range of motion. Skin: Warm, dry with normal turgor. Normal color with no rashes, no lesions, and no evidence of cellulitis. MS/ Extremity: Pulses equal, no cyanosis. Neurovascular intact. Full, normal range of motion. Neuro: Awake and alert, GCS 15, oriented to person, place, time, and situation. Cranial nerves II-XII grossly intact. Motor strength 5/5 in all extremities. Sensory grossly intact. Cerebellar exam normal. Normal gait. Psych: Awake, alert, with orientation to person, place and time. Behavior, mood, and affect are within normal limits. 11:06 Abdomen/GI: Inspection: abdomen appears normal, Bowel sounds: active, Palpation: soft, mild abdominal tenderness, in all quadrants, Rectal exam: rectal tone normal, Stool: brown, guaiac negative, swelling, is not appreciated, tenderness, is not appreciated, fecal impaction, is not appreciated, the exam is chaperoned by the nurse. Vital Signs: 08:58 BP 142 / 81; Pulse 68; Resp 16; Temp 98.9; Pulse Ox 100% on R/A; Weight 49.9 kg; Height hb 5 ft. 5 in. (165.10 cm); Pain 4/10; 10:00 BP 129 / 75; Pulse 85; Resp 18; Pulse Ox 98% on R/A; aj1 11:00 BP 131 / 64; Pulse 80; Resp 18; Pulse Ox 98% on R/A; aj1 12:00 BP 129 / 62; Pulse 80; Resp 18; Pulse Ox 99% on R/A; aj1 14:04 BP 144 / 78; Pulse 97; Resp 18; Pulse Ox 100% on R/A; aj1 15:00 BP 137 / 65; Pulse 88; Resp 18; Pulse Ox 97% on R/A; aj1 16:00 BP 129 / 69; Pulse 82; Resp 18; Pulse Ox 98% on R/A; aj1 08:58 Body Mass Index 18.30 (49.90 kg, 165.10 cm) hb MDM: 11:06 Data reviewed: vital signs, nurses notes, lab test result(s), radiologic studies. kdr Counseling: I had a detailed discussion with the patient and/or guardian regarding: the historical points, exam findings, and any diagnostic results supporting the discharge/admit diagnosis, lab results, radiology results. 14:10 Patient medically screened. kdr 01/12 10:14 Order name: Basic Metabolic Panel; Complete Time: 13:35 kdr 01/12 10:14 Order name: CBC with Diff; Complete Time: 13:35 kdr 01/12 10:14 Order name: Creatinine for Radiology; Complete Time: 13:35 kdr 01/12 10:14 Order name: Hepatic Function; Complete Time: 13:35 kdr 01/12 10:14 Order name: Lipase; Complete Time: 13:35 [facility] 01/12 10:14 Order name: Abdomen Acute Series XRAY; Complete Time: 11:43 [facility] 01/12 10:14 Order name: IV Saline Lock; Complete Time: 12:11 [facility] 01/12 10:14 Order name: Labs collected and sent; Complete Time: 12:11 [facility] Administered Medications: 16:00 Drug: HEParin Flush 500 units Route: IVP; Site: Port-a-cath; aj1 Disposition: 01/12/19 14:10 Discharged to Home. Impression: Constipation, unspecified, Weakness. - Condition is Fair. - Discharge Instructions: Constipation, Adult, [id number], Weakness, [id number]. - Prescriptions for Dulcolax (bisacodyl) 5 mg Oral tablet,delayed release (DR/EC) - take 1 tablet by ORAL route once daily As needed; 10 tablet. magnesium citrate - take 1 bottle by ORAL route every 6-8 hours As needed; 2 bottle. Dulcolax 10 mg Rectal Suppository - insert 1 suppository by RECTAL route every 6 hours As needed; 10 suppository. Miralax 17 gram/dose Oral - take 1 packet by ORAL route once daily dilute powder in 8 ounces of water or juice; 20 packet. - Medication Reconciliation Form, Thank You Letter, Antibiotic Education, Prescription Opioid Use form. - Follow up: Private Physician; When: 1 - 2 days; Reason: If symptoms return, Further diagnostic work-up, Recheck today's complaints, Continuance of care, Re-evaluation by your physician. - Problem is an acute exacerbation. - Symptoms are unchanged. Signatures: Dispatcher [employer] [facility] Es Avery RN RN aj1 Evan Caceres MD MD [facility] Dinora Coombs RN RN Corrections: (The following items were deleted from the chart) 16:19 14:10 01/12/2019 14:10 Discharged to Home. Impression: Constipation, unspecified; aj1 Weakness. Condition is Fair. Forms are Medication Reconciliation Form, Thank You Letter, Antibiotic Education, Prescription Opioid Use. Follow up: Private Physician; When: 1 - 2 days; Reason: If symptoms return, Further diagnostic work-up, Recheck today's complaints, Continuance of care, Re-evaluation by your physician. Problem is an acute exacerbation. Symptoms are unchanged. [facility]
[2019-01-12] MEDS ORDERED: HEPARIN 500 UNIT/5 ML SYR IV ONE (15:56)
[2019-01-12 16:25] VITALS: TEMP 98.9
[2019-01-12 16:34] VITALS: BP 129/69; O2SAT 98
== END 2019-01-12 16:19 | disposition home or self-care (01) ==
LOC: ER 08:54
DX: K59.00 Constipation, unspecified (principal); R53.1 Weakness; Z88.0 Allergy status to penicillin; Z85.3 Personal history of malignant neoplasm of breast
CPT/HCPCS: 85025; 80048; 36415; 80076; 83690; 74022; 96374; 99285; J1642

== ENCOUNTER 2019-01-17 12:14 | Inpatient (IN) | payer OTHER ==
[2019-01-17] MEDS ORDERED: ONDANSETRON 4 MG/2 ML VIAL ONE ×2 (13:00→18:19)
--- NOTE | 2019-01-17 13:28 | EDPHYS ---
Physician Documentation [facility] Name: Carmen Lima Age: 73 yrs Sex: Female : 1945 Arrival Date: 01/17/2019 Time: 12:18 Bed 26 Private MD: ED Physician Michael Tierney HPI: 01/17 13:24 This 73 yrs old Female presents to ER via EMS with complaints of nausea and ankit decreased intake. 13:24 The patient presents with abdominal pain in the upper abdomen, in the lower abdomen. ankit Onset: The symptoms/episode began/occurred 3 day(s) ago. The patient presents to the emergency department with nausea, vomiting, that is intermittent. Onset: The symptoms/episode began/occurred 3 day(s) ago. Possible causes: unknown. The symptoms are aggravated by movement, The symptoms are alleviated by nothing. Associated signs and symptoms: The patient has no apparent associated signs or symptoms. Associated signs and symptoms: Pertinent positives: nausea, vomiting. Historical: - Allergies: 12:47 PENICILLINS; mg2 - Home Meds: 12:47 [place] Thyroid 15 mg Oral tab 15 mg daily [Active]; h-jeva [Active]; mg2 - PMHx: 12:47 Cancer, Breast; Thyroid problem; mg2 - PSHx: 12:47 Hysterectomy; mg2 - Immunization history:: Flu vaccine is not up to date. - Social history:: Smoking status: Patient/guardian denies using tobacco, Patient/guardian denies using alcohol, street drugs, IV drugs. - Ebola Screening: : No symptoms or risks identified at this time. - Family history:: not pertinent. ROS: 13:24 Constitutional: Negative for fever, chills, and weight loss, Eyes: Negative for injury, ankit pain, redness, and discharge, ENT: Negative for injury, pain, and discharge, Neck: Negative for injury, pain, and swelling, Cardiovascular: Negative for chest pain, palpitations, and edema, Respiratory: Negative for shortness of breath, cough, wheezing, and pleuritic chest pain, Back: Negative for injury and pain, : Negative for injury, bleeding, discharge, and swelling, MS/Extremity: Negative for injury and deformity, Skin: Negative for injury, rash, and discoloration, Neuro: Negative for headache, weakness, numbness, tingling, and seizure, Psych: Negative for depression, anxiety, suicide ideation, homicidal ideation, and hallucinations, Allergy/Immunology: Negative for hives, rash, and allergies, Endocrine: Negative for neck swelling, polydipsia, polyuria, polyphagia, and marked weight changes, Hematologic/Lymphatic: Negative for swollen nodes, abnormal bleeding, and unusual bruising. 13:24 Abdomen/GI: Positive for nausea and vomiting, of the right upper quadrant, left upper quadrant, right lower quadrant and left lower quadrant. Exam: 13:24 Constitutional: This is a well developed, well nourished patient who is awake, alert, ankit and in no acute distress. Head/Face: Normocephalic, atraumatic. Eyes: Pupils equal round and reactive to light, extra-ocular motions intact. Lids and lashes normal. Conjunctiva and sclera are non-icteric and not injected. Cornea within normal limits. Periorbital areas with no swelling, redness, or edema. ENT: Nares patent. No nasal discharge, no septal abnormalities noted. Tympanic membranes are normal and external auditory canals are clear. Oropharynx with no redness, swelling, or masses, exudates, or evidence of obstruction, uvula midline. Mucous membranes moist. Neck: Trachea midline, no thyromegaly or masses palpated, and no cervical lymphadenopathy. Supple, full range of motion without nuchal rigidity, or vertebral point tenderness. No Meningismus. Chest/axilla: Normal chest wall appearance and motion. Nontender with no deformity. No lesions are appreciated. Cardiovascular: Regular rate and rhythm with a normal S1 and S2. No gallops, murmurs, or rubs. Normal PMI, no JVD. No pulse deficits. Respiratory: Lungs have equal breath sounds bilaterally, clear to auscultation and percussion. No rales, rhonchi or wheezes noted. No increased work of breathing, no retractions or nasal flaring. Back: No spinal tenderness. No costovertebral tenderness. Full range of motion. Female : Normal external genitalia. MS/ Extremity: Pulses equal, no cyanosis. Neurovascular intact. Full, normal range of motion. Neuro: Awake and alert, GCS 15, oriented to person, place, time, and situation. Cranial nerves II-XII grossly intact. Motor strength 5/5 in all extremities. Sensory grossly intact. Cerebellar exam normal. Normal gait. Psych: Awake, alert, with orientation to person, place and time. Behavior, mood, and affect are within normal limits. 13:24 Abdomen/GI: Inspection: abdomen appears normal, Bowel sounds: normal, Palpation: mild abdominal tenderness, in all quadrants, Liver: no appreciated palpable abnormalities, Hernia: not appreciated. Vital Signs: 12:26 BP 147 / 82 RA (auto/reg); Pulse 79; Resp 18 S; Temp 97.8(O); Pulse Ox 95% on R/A; Pain jp3 0/10; 12:47 Weight 51.71 kg; Height 5 ft. 2 in. (157.48 cm); mg2 14:21 BP 144 / 64; Pulse 82; Resp 18; Pulse Ox 98% on R/A; mg2 15:56 BP 131 / 59; Pulse 75; Resp 18; Pulse Ox 97% on R/A; mg2 18:30 BP 151 / 68; Pulse 76; Resp 18; Temp 97.8; Pulse Ox 96% on R/A; mg2 12:47 Body Mass Index 20.85 (51.71 kg, 157.48 cm) mg2 MDM: 12:21 Patient medically screened. [facility] 13:26 Data reviewed: vital signs, nurses notes, lab test result(s), EKG, radiologic studies, ankit plain films. 01/17 12:58 Order name: Basic Metabolic Panel; Complete Time: 16:34 mg2 01/17 12:58 Order name: CBC with Diff; Complete Time: 16:34 mg2 01/17 12:58 Order name: Creatinine for Radiology; Complete Time: 16:34 mg2 01/17 12:58 Order name: Hepatic Function; Complete Time: 16:34 mg2 01/17 12:58 Order name: Lipase; Complete Time: 16:34 mg2 01/17 13:21 Order name: Magnesium; Complete Time: 16:34 ankit 01/17 13:21 Order name: NT PRO-BNP; Complete Time: 16:34 ankit 01/17 13:21 Order name: PT-INR; Complete Time: 16:34 ankit 01/17 13:21 Order name: Troponin (emerg Dept Use Only); Complete Time: 16:34 ankit 01/17 13:21 Order name: XRAY Chest (1 view); Complete Time: 16:34 ankit 01/17 13:30 Order name: Glucose, Ancillary Testing; Complete Time: 16:34 EDNY 01/17 13:50 Order name: CBC Smear Scan; Complete Time: 16:34 EDNY 01/17 12:58 Order name: IV Saline Lock; Complete Time: 13:19 mg2 01/17 12:58 Order name: Labs collected and sent; Complete Time: 13:19 mg2 01/17 13:21 Order name: EKG; Complete Time: 13:22 ankit 01/17 13:21 Order name: Cardiac monitoring; Complete Time: 13:36 ankit 01/17 13:21 Order name: EKG - Nurse/Tech; Complete Time: 13:36 ankit 01/17 13:21 Order name: O2 Per Protocol; Complete Time: 13:36 ankit 01/17 13:21 Order name: O2 Sat Monitoring; Complete Time: 13:36 ankit 01/17 14:53 Order name: Social Service Consult EDMS Administered Medications: 13:19 Drug: Zofran 4 mg Route: IVP; Site: right antecubital; mg2 16:00 Follow up: Response: No adverse reaction mg2 13:22 CANCELLED (Duplicate Order): NS 0.45 % with KCl 20 mEq/L 1000 ml IV at 125 ml/hr once ankit 13:49 Drug: NS 0.9% 1000 ml Route: IV; Rate: 1 bolus; Site: right antecubital; mg2 15:59 Follow up: Response: No adverse reaction; IV Status: Completed infusion; IV Intake: mg2 1000ml 13:49 Drug: Pepcid 20 mg Route: IVP; Site: right antecubital; mg2 15:59 Follow up: Response: No adverse reaction; Marked relief of symptoms mg2 14:15 Drug: NS 0.9% 1000 ml Route: IV; Rate: 125 ml/hr; Site: right antecubital; mg2 18:29 Follow up: Response: No adverse reaction; IV Status: Infusion continued upon admission; mg2 IV Intake: 500ml 18:29 Drug: Zofran 4 mg Route: IVP; Site: right antecubital; mg2 18:29 Follow up: Response: No adverse reaction; patient admitted mg2 Disposition: 01/17/19 13:27 Hospitalization ordered by Duarte Lyons for Inpatient Admission. Preliminary diagnosis are Weakness, Vomiting, Volume depletion. - Bed requested for Telemetry/MedSurg (Inpatient). - Status is Inpatient Admission. mg2 - Condition is Fair. - Problem is new. - Symptoms have improved. UTI on Admission? No Signatures: Dispatcher [employer] EDMS Char Pitts Michael De Jesus MD MD cha Gardose, Michele, RN RN mg2 Corrections: (The following items were deleted from the chart) 13:22 13:21 NS 0.45 % with KCl 20 mEq/L 1000 ml IV at 125 ml/hr once ordered. [facility] 16:00 13:27 Hospitalization Ordered by Duarte Lyons DO for Inpatient Admission. Preliminary bd diagnosis is Weakness; Vomiting; Volume depletion. Bed requested for Telemetry/MedSurg (Inpatient). Status is Inpatient Admission. Condition is Fair. Problem is new. Symptoms have improved. UTI on Admission? No. [facility] 18:31 16:00 01/17/2019 13:27 Hospitalization Ordered by Duarte Lyons DO for Inpatient mg2 Admission. Preliminary diagnosis is Weakness; Vomiting; Volume depletion. Bed requested for Telemetry/MedSurg (Inpatient). Status is Inpatient Admission. Condition is Fair. Problem is new. Symptoms have improved. UTI on Admission? No. bd
--- NOTE | 2019-01-17 13:28 | ER ---
[facility] Name: Carmen Lima Age: 73 yrs Sex: Female : 1945 Arrival Date: 01/17/2019 Time: 12:18 Bed 26 Private MD: Diagnosis: Weakness;Vomiting;Volume depletion Presentation: 01/17 12:30 Presenting complaint: EMS states: patient was having n/v and general body weakness for mg2 2 days. she had chemotherapy 2 weeks ago. she has portacath and her left side is restricted for procedures. son said this could be the side effect of the H-Jeva medicine that he takes for her bone for years now. Transition of care: patient was not received from another setting of care. Onset of symptoms was January 16, 2019. Risk Assessment: Do you want to hurt yourself or someone else? Patient reports no desire to harm self or others. Initial Sepsis Screen: Does the patient meet any 2 criteria? No. Patient's initial sepsis screen is negative. Does the patient have a suspected source of infection? No. Patient's initial sepsis screen is negative. Care prior to arrival: None. 12:30 Method Of Arrival: EMS: [facility] mg2 12:30 Acuity: GWEN 3 mg2 Historical: - Allergies: 12:47 PENICILLINS; mg2 - Home Meds: 12:47 [place] Thyroid 15 mg Oral tab 15 mg daily [Active]; h-jeva [Active]; mg2 - PMHx: 12:47 Cancer, Breast; Thyroid problem; mg2 - PSHx: 12:47 Hysterectomy; mg2 - Immunization history:: Flu vaccine is not up to date. - Social history:: Smoking status: Patient/guardian denies using tobacco, Patient/guardian denies using alcohol, street drugs, IV drugs. - Ebola Screening: : No symptoms or risks identified at this time. - Family history:: not pertinent. Screenin:20 Abuse screen: Denies threats or abuse. Nutritional screening: No deficits noted. tw2 Tuberculosis screening: No symptoms or risk factors identified. Fall Risk Secondary diagnosis (15 points) impaired mobility. 14:20 Abuse screen: Denies threats or abuse. Denies injuries from another. Fall Risk IV mg2 access (20 points). Gait- Weak (10 pts.). Assessment: 13:00 General: Appears in no apparent distress. comfortable, Behavior is calm, cooperative. mg2 Pain: Denies pain. Neuro: Level of Consciousness is awake, alert, obeys commands, Oriented to person, place, time, situation, Reports weakness in whole body since 2 days ago. Cardiovascular: Capillary refill < 3 seconds Patient's skin is warm and dry. Respiratory: Airway is patent Respiratory effort is even, unlabored, Respiratory pattern is regular, symmetrical. GI: Reports nausea, vomiting, since 2 days ago. : Urine is clear. EENT: No signs and/or symptoms were reported regarding the EENT system. Derm: Skin is intact, is healthy with good turgor, Skin is normal, pale. Musculoskeletal: Circulation, motion, and sensation intact. Capillary refill < 3 seconds. 14:22 Reassessment: dr morris came and assessed the patient and advised for admission. mg2 patient agreed. 15:57 Reassessment: Patient appears in no apparent distress at this time. Patient and/or mg2 family updated on plan of care and expected duration. Pain level reassessed. Patient is alert, oriented x 3, equal unlabored respirations, skin warm/dry/pink. Vital Signs: 12:26 BP 147 / 82 RA (auto/reg); Pulse 79; Resp 18 S; Temp 97.8(O); Pulse Ox 95% on R/A; Pain jp3 0/10; 12:47 Weight 51.71 kg; Height 5 ft. 2 in. (157.48 cm); mg2 14:21 BP 144 / 64; Pulse 82; Resp 18; Pulse Ox 98% on R/A; mg2 15:56 BP 131 / 59; Pulse 75; Resp 18; Pulse Ox 97% on R/A; mg2 18:30 BP 151 / 68; Pulse 76; Resp 18; Temp 97.8; Pulse Ox 96% on R/A; mg2 12:47 Body Mass Index 20.85 (51.71 kg, 157.48 cm) mg2 ED Course: 12:18 Patient arrived in ED. ss 12:21 Michael Tierney MD is Attending Physician. ankit 12:27 Patient has correct armband on for positive identification. Bed in low position. Call jp3 light in reach. Side rails up X 1. Side rails up X2. NO IV,BP, LABS sleeve applied to Left Arm. Warm blanket given. Verbal reassurance given. fluid dynamicist on. Pulse ox on. NIBP on. 12:32 Accessed Patient maintains SpO2 saturation greater than 95% on room air. jp3 12:41 Stefano Martin, RN is Primary Nurse. mg2 12:45 Triage completed. mg2 13:20 Inserted saline lock: 22 gauge in right antecubital area, using aseptic technique. mg2 Blood collected. 13:27 Duarte Morris DO is Hospitalizing Provider. ankit 13:30 EKG done, by chief ultrasound technologist. reviewed by Michael Tierney MD. 3 13:30 Initial lab(s) drawn, by ED staff, sent to lab. jp3 13:45 XRAY Chest (1 view) In Process Unspecified. EDMS 14:20 Arm band placed on. tw2 14:21 No provider procedures requiring assistance completed. Patient admitted, IV remains in mg2 place. Administered Medications: 13:19 Drug: Zofran 4 mg Route: IVP; Site: right antecubital; mg2 16:00 Follow up: Response: No adverse reaction mg2 13:22 CANCELLED (Duplicate Order): NS 0.45 % with KCl 20 mEq/L 1000 ml IV at 125 ml/hr once ankit 13:49 Drug: NS 0.9% 1000 ml Route: IV; Rate: 1 bolus; Site: right antecubital; mg2 15:59 Follow up: Response: No adverse reaction; IV Status: Completed infusion; IV Intake: mg2 1000ml 13:49 Drug: Pepcid 20 mg Route: IVP; Site: right antecubital; mg2 15:59 Follow up: Response: No adverse reaction; Marked relief of symptoms mg2 14:15 Drug: NS 0.9% 1000 ml Route: IV; Rate: 125 ml/hr; Site: right antecubital; mg2 18:29 Follow up: Response: No adverse reaction; IV Status: Infusion continued upon admission; mg2 IV Intake: 500ml 18:29 Drug: Zofran 4 mg Route: IVP; Site: right antecubital; mg2 18:29 Follow up: Response: No adverse reaction; patient admitted mg2 Intake: 15:59 IV: 1000ml; Total: 1000ml. mg2 18:29 IV: 500ml; Total: 1500ml. mg2 Outcome: 13:27 Decision to Hospitalize by Provider. ankit 18:30 Admitted to Med/surg accompanied by tech, via stretcher, room 204, with chart, Report mg2 called to BUZZ Smith 18:30 Condition: stable 18:30 Instructed on the need for admit, Demonstrated understanding of instructions. 18:31 Patient left the ED. mg2 Signatures: Dispatcher [employer] Michael Diallo MD MD cha Smirch, Shelby RN RN ss Angella Velez RN RN tw2 Stefano Martin RN RN mg2 Chica Saenz 3 Chris Omalley jp3
[2019-01-17 13:37] LABS: Absolute Lymphocytes (CBC) 0.7 K/uL (0.7-4.9); Basophils % 0.6 % (0-1.3); MPV 6.4 fL (7.6-11.3)
[2019-01-17 13:45] LABS: Hematocrit 34.7 % (36.0-45.0); Lymphocytes % 19.1 % (15.3-44.8); RBC Red Blood Cell Count 3.58 M/uL (3.86-4.86)
[2019-01-17] MEDS ORDERED: FAMOTIDINE 20 MG/2 ML VIAL IV ONE (13:45)
[2019-01-17] MEDS ORDERED: NA CHLORIDE 0.9% 2,000 ML ONE (13:45)
[2019-01-17 13:47] LABS: Protime INR 1.08
--- NOTE | 2019-01-17 13:51 | RAD REPORT ---
EXAM DESCRIPTION: RAD - Chest Single View - 01/17/2019 1:44 pm CLINICAL HISTORY: COUGH Chest pain. COMPARISON: Abdomen Acute Series dated 01/12/2019; Chest Single View dated 04/05/2018; Chest Pa And L at (2 Views) dated 10/01/2017; CHEST SINGLE VIEW dated 10/30/2014 FINDINGS: Portable technique limits examination quality. The lungs are grossly clear. The heart is normal in size. Right-sided port catheter its tip in the SV C.Diffuse osseous sclerosis is unchanged. IMPRESSION: No acute intrathoracic process suspected.
[2019-01-17 13:56] LABS: ALT/SGPT 30 U/L (12-78); AST/SGOT 61 U/L (15-37); Albumin 3.9 g/dL (3.4-5.0); Alkaline Phosphatase 88 U/L (45-117); BUN Blood Urea Nitrogen 18 mg/dL (7-18); Bicarbonate 25 mmol/L (21-32); Bilirubin Direct 0.2 mg/dL (0-0.2); Bilirubin Total 0.8 mg/dL (0.2-1.0); Glucose Level 132 mg/dL (74-106); Lipase 61 U/L (73-393); Potassium 3.7 mmol/L (3.5-5.1); Protein, Total 6.6 g/dL (6.4-8.2); Sodium Level 141 mmol/L (136-145)
[2019-01-17 14:07] LABS: Magnesium 2.5 mg/dL (1.8-2.4); NT PRO-BNP 258 pg/mL (<450); Troponin (Emerg Dept Use Only) < 0.02 ng/mL (0.0-0.045)
[2019-01-17 14:28] LABS: Anisocytosis 1+; Blood Morphology Comment NOTED (NOT SEEN); Platelet Estimate ADEQ; Polychromasia SLIGHT; Urine White Blood Cell Casts OK
--- NOTE | 2019-01-17 14:52 | P.HP ---
Certification for Inpatient Patient admitted to: Observation With expected LOS: <2 Midnights Patient will require the following post-hospital care: Home Health Services Practitioner: I am a practitioner with admitting privileges, knowledge of patient current condition, hospital course, and medical plan of care. Services: Services provided to patient in accordance with Admission requirements found in Title 42 Section 412.3 of the Code of Federal Regulations Patient History Date of Service: 01/17/19 Primary Care Provider: Dr. Campbell; Oncology-Dr. Kinney Reason for admission: Nausea, vomiting, weakness History of Present Illness: 73-year-old female with history of hypothyroidism and breast cancer. Over the past 2 weeks patient has been having increased nausea, vomiting and weakness. About 2 weeks ago she was given 1 of her medications that she takes once a month. This primarily for bone loss. Medication-Ageva. This medication usually causes constipation and diarrhea. After she got medication she started to have decreased input. She had some constipation. This was followed by nausea, vomiting and some diarrhea. She was seen last week in the ER for dehydration. She was sent home at that time. She had slight improvement with a bowel movement. But then over the weekend she continued to have increased nausea and vomiting with poor intake. She became very weak and came to the ER for further evaluation. In the ER patient appeared dehydrated. Chest x-ray unremarkable. White count 3.9, hemoglobin 11.8, platelet count of 291. Sodium 141, potassium 3.7 %period % creatinine 0.5 with a GFR greater than 90. Glucose 132. Patient was given IV fluids. She was admitted for observation to further evaluate. When I saw the patient the ER, she appeared dehydrated. at bedside. reports patient has had poor oral intake. Allergies codeine Allergy (Verified 10/30/14 20:03) nausea iodine Allergy (Verified 04/05/18 17:11) Rash Iodine and Iodide Containing Produc Allergy (Verified 04/05/18 12:19) Rash Penicillins Allergy (Verified 10/30/14 20:03) Rash Home Medications: Thyroid,Pork [[place] Thyroid] 15 mg PO [id number] 10/30/14 - Past Medical/Surgical History Diabetic: No -: Breast Cancer, Oncology-Dr. 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 stomach Ca Mother -: Hypertension - Social History Smoking Status: Never smoker Alcohol use: No CD- Drugs: No Caffeine use: No Place of Residence: Home Review of Systems General: Weakness, Malaise, As per HPI Eyes: Unremarkable ENT: Unremarkable Respiratory: Unremarkable Cardiovascular: Unremarkable Gastrointestinal: Nausea, Vomiting, Diarrhea, Constipation, As per HPI Genitourinary: Unremarkable Musculoskeletal: Unremarkable Integumentary: Unremarkable Neurological: As per HPI Lymphatics: Unremarkable Physical Examination - Physical Exam General: Alert, In no apparent distress, Oriented x3, Cooperative HEENT: Atraumatic, Normocephalic, Other (Dry mucous membranes) Neck: Supple, No Thyromegaly Respiratory: Clear to auscultation bilaterally, Normal air movement Cardiovascular: Normal pulses, Regular rate/rhythm Gastrointestinal: Normal bowel sounds, Soft and benign, Non-distended, No tenderness, No masses, No rebound, No guarding Musculoskeletal: No contractures, No erythema, No tenderness, No warmth Integumentary: No tenderness/swelling, No erythema, No warmth, No cyanosis Neurological: Normal speech, Normal strength at 5/5 x4 extr, Normal tone, Normal affect - Studies Laboratory Data (last 24 hrs) 01/17/19 13:20: PT 12.7 H, INR 1.08 01/17/19 13:20: Magnesium 2.5 H 01/17/19 13:20: Creatinine 0.57 01/17/19 13:20: WBC 3.7 L D, Hgb 11.8 L, Hct 34.7 L, Plt Count 291 01/17/19 13:20: Sodium 141, Potassium 3.7, BUN 18, Creatinine 0.58, Glucose 132 H, Total Bilirubin 0.8, AST 61 H, ALT 30, Alkaline Phosphatase 88, Lipase 61 L Assessment and Plan - Plan Impression: Nausea, vomiting, weakness secondary to dehydration related to medication History of breast cancer, in remission Hypothyroidism Plan: Nausea, vomiting, weakness secondary to dehydration related to medication: Patient will be admitted for further evaluation and treatment. Will continue with IV fluids. Symptoms may be related to medication--Xgeva. Will need to review side effect profile. May need to discuss further with oncology. Will have dietary assess daily needs. Will provide supplementation as needed. Will recheck lab in the morning. Will have physical therapy assess ambulation. I will turn the service over to Dr. Naik tomorrow. I will go over the plan of care with her. Anticipate discharge tomorrow with clinical improvement. Social work consulted to help with the possibility of home health and physical therapy discharge. History of breast cancer, in remission: Currently in remission. Hypothyroidism: Check thyroid levels. Continue with home medication. Discharge Plan: Home Plan to discharge in: 24 Hours - Advance Directives Does patient have a Living Will: Yes Does patient have a Durable POA for Healthcare: Yes - Code Status/Comfort Care Code Status Assessed: Yes (Patient is full code) Time Spent Managing Pts Care (In Minutes): 55
--- NOTE | 2019-01-17 15:41 | EKG ---
Test Date: 2019-01-17 Test Time: 13:25:00 Buckle Inspector: SALVADOR MEASUREMENT RESULTS: Intervals: Rate: 72 AL: 132 QRSD: 92 QT: 432 QTc: 473 [place]: P: 81 AL: 132 QRS: 87 T: 89 INTERPRETIVE STATEMENTS: Normal sinus rhythm Voltage criteria for left ventricular hypertrophy Abnormal ECG Compared to ECG 04/05/2018 07:53:42 Left ventricular hypertrophy now present ST (T wave) deviation no longer present Electronically Signed On 01-17-19 15:40:54 CDT by Baldemar Moreno
[2019-01-17] MEDS ORDERED: ACETAMINOPHEN 500 MG TAB PO PRN (18:07)
[2019-01-17] MEDS ORDERED: POTASSIUM CL SA 10 MEQ TAB PO ONE (18:15)
[2019-01-17] MEDS: NA CHLORIDE 0.9% 1,000 ML IV SCH (18:42)
[2019-01-18] MEDS: NA CHLORIDE 0.9% 1,000 ML IV SCH (02:02)
[2019-01-18] MEDS: ONDANSETRON 4 MG/2 ML VIAL IV PRN ×4 (05:39→23:49)
[2019-01-18 05:52] LABS: Absolute Lymphocytes (CBC) 0.7 K/uL (0.7-4.9); Basophils % 0.3 % (0-1.3); Hematocrit 29.2 % (36.0-45.0); Lymphocytes % 22.4 % (15.3-44.8); MPV 6.1 fL (7.6-11.3)
[2019-01-18] MEDS: THYROID 30 MG TAB PO SCH (06:00)
[2019-01-18 06:09] LABS: BUN Blood Urea Nitrogen 11 mg/dL (7-18); Bicarbonate 22 mmol/L (21-32); Glucose Level 93 mg/dL (74-106); Magnesium 2.2 mg/dL (1.8-2.4); Potassium 3.5 mmol/L (3.5-5.1); Sodium Level 144 mmol/L (136-145); T4,Total 8.4 ug/dL (4.8-13.9)
[2019-01-18] MEDS ORDERED: HYDRALAZINE HCL 20 MG/ML VIAL IV PRN (06:17)
[2019-01-18 07:48] VITALS: BMI 20.8
[2019-01-18] MEDS ORDERED: KCL 20 MEQ/100 mL IVPB 20 MEQ/100 ML BAG IV SCH (08:00)
[2019-01-18] MEDS: ENOXAPARIN 40 MG/0.4 ML SQ SCH (08:52)
[2019-01-18 09:24] LABS: Anisocytosis 1+; Blood Morphology Comment NOTED (NOT SEEN); Platelet Estimate ADEQ
--- NOTE | 2019-01-18 16:07 | P.PN ---
Subjective Date of Service: 01/18/19 Primary Care Provider: Dr. Campbell; Oncology-Dr. Kinney Chief Complaint: Nausea, vomiting, weakness Patient seen and examined at bedside with RN. Chart reviewed. Case discussed with family at bedside. Currently patient complaining having generalized weakness along with loss of appetite. Still continues to have nausea and unable to keep anything down. No other complaints to offer at this time Review of Systems 10-point ROS is otherwise unremarkable Physical Examination - Vital Signs Temperature: 98.1 F Blood Pressure: 158/72 Pulse: 81 Respirations: 16 Pulse Ox (%): 94 - Physical Exam General: Alert, In no apparent distress HEENT: Atraumatic, PERRLA, EOMI Neck: Supple, JVD not distended Respiratory: Clear to auscultation bilaterally, Normal air movement Cardiovascular: Regular rate/rhythm, Normal S1 S2 Gastrointestinal: Normal bowel sounds, No tenderness Musculoskeletal: No tenderness Integumentary: No rashes Neurological: Normal speech, Normal tone, Normal affect Lymphatics: No axilla or inguinal lymphadenopathy - Studies Medications List Reviewed: Yes Assessment And Plan - Current Problems (Diagnosis) (1) Weakness Onset Date: 04/06/18 Current Visit: No Status: Acute (2) Diarrhea Onset Date: 04/06/18 Current Visit: No Status: Resolved Qualifiers: Diarrhea type: unspecified type Qualified Code(s): R19.7 - Diarrhea, unspecified (3) Breast cancer Onset Date: 10/31/14 Current Visit: No Status: Chronic Qualifiers: Breast location: unspecified site of breast Estrogen receptor status: unspecified Patient sex: female Laterality: unspecified laterality Qualified Code(s): C50.919 - Malignant neoplasm of unspecified site of unspecified female breast (4) Hypothyroidism Onset Date: 10/31/14 Current Visit: No Status: Chronic Qualifiers: Hypothyroidism type: acquired Qualified Code(s): E03.9 - Hypothyroidism, unspecified - Plan Patient was admitted to the hospital for dehydration most likely secondary to nausea vomiting and diarrhea was also found to have generalized weakness most likely secondary to medication side effect. Diarrhea has now resolved. Nausea and vomiting has had minimal improvement. Patient at this time is unable to keep anything down. Will go ahead and continue with IV fluids here in the hospital. Will get PT OT in dietary consultation done at this time. Once patient is working with physical therapy will have evaluation done for home health. Patient was educated regarding the disease process and the need to follow up with oncology to be possibly prescribed appetite stimulants along with nausea medication after she gets her treatment for chemo. Discharge Plan: Home Plan to discharge in: Greater than 2 days - Code Status/Comfort Care Code Status Assessed: Yes Critical Care: No
[2019-01-18] MEDS: ENSURE ENLIVE 237 ML CAN PO SCH (21:00)
[2019-01-19 05:41] LABS: Absolute Lymphocytes (CBC) 0.9 K/uL (0.7-4.9); Basophils % 0.3 % (0-1.3); Hematocrit 30.9 % (36.0-45.0); Lymphocytes % 19.2 % (15.3-44.8); MPV 6.1 fL (7.6-11.3); RBC Red Blood Cell Count 3.26 M/uL (3.86-4.86)
[2019-01-19] MEDS: ONDANSETRON 4 MG/2 ML VIAL IV PRN (05:57)
[2019-01-19 05:59] LABS: BUN Blood Urea Nitrogen 13 mg/dL (7-18); Bicarbonate 23 mmol/L (21-32); Glucose Level 90 mg/dL (74-106); Magnesium 2.5 mg/dL (1.8-2.4); Potassium 3.1 mmol/L (3.5-5.1); Sodium Level 140 mmol/L (136-145)
[2019-01-19] MEDS: THYROID 30 MG TAB PO SCH (06:00)
[2019-01-19] MEDS ORDERED: SODIUM CHLORIDE 0.9% 10ML INJ IV PRN (08:50)
[2019-01-19] MEDS ORDERED: NA CHLORIDE 0.9% 250 ML ONE (08:52)
[2019-01-19] MEDS: ENOXAPARIN 40 MG/0.4 ML SQ SCH (09:00)
[2019-01-19] MEDS: ENSURE ENLIVE 237 ML CAN PO SCH ×2 (09:00→20:33)
[2019-01-19] MEDS: PANTOPRAZOLE 40 MG INJ IVP SCH (09:17)
[2019-01-19] MEDS: KCL 20 MEQ/100 mL IVPB 20 MEQ/100 ML BAG IV SCH ×2 (09:18→11:16)
[2019-01-19] MEDS: PROMETHAZINE 25 MG/ML VIAL IV PRN ×3 (11:12→23:57)
--- NOTE | 2019-01-19 14:09 | RAD REPORT ---
EXAM DESCRIPTION: MRI - Brain W/Wo Cont - 01/19/2019 1:59 pm CLINICAL HISTORY: metastatic breast cancer COMPARISON: Sinus 3/+ Views dated 10/01/2017; Ct Skull/Thigh dated 09/09/2018 TECHNIQUE: Multi-sequence, multiplanar MR imaging of the brain was performed with contrast. FINDINGS: There is significant motion degradation present in the quality of the study. An avidly enhancing mass is seen in the left temporal lobe region measuring 30 x 19 mm along the dura with moderate surrounding edema. There is extensive leptomeningeal enhancement seen involving the po sterior fossa as well as the supratentorial region. Dural thickening is also seen along the right fro ntal convexity. No midline shift is seen. No hydrocephalus. Acute hemorrhage is not identified. IMPRESSION: Significantly limited study due to motion artifact demonstrating findings of extensive l eptomeningeal carcinomatosis. A large dural-based enhancing mass is seen along the left anteromedial cranial fossa as described.
[2019-01-19] MEDS: dexAMETHasone 4 MG/ML VIAL IV SCH (16:09)
--- NOTE | 2019-01-19 16:49 | PN ---
Date of Progress Note: 01/19/2019 Subjective: Patient seen and examined. Chart reviewed and case discussed with RN and Dr. Naik as well as Dr. Kinney. Patient's family requesting second opinion. Patient continues to have some nausea. No real episode of emesis. Patient still not eating. Has refused to work with PT for the past 3 days citing her nausea. Medications: List reviewed. Physical Examination: Vital Signs: Temperature 98.4, heart rate 89, blood pressure 145/75, respirations 17, O2 95% on room air. General: Awake, alert, oriented x3. Elderly female, in some mild distress, frail. CV: S1, S2. Regular rate and rhythm. Peripheral pulses present. Respiratory: Moving air well bilaterally. No wheezing or stridor. Gastrointestinal: Abdomen is soft, nontender, nondistended. Positive bowel sounds. Extremities: No clubbing, cyanosis, or edema. Neurologic: Cranial nerves 2 through 12 intact grossly. No focal neurological deficit. Patient does have some generalized weakness. Laboratory Data: Sodium 140, potassium 3.1, chloride 110, CO2 of 23, BUN 13, creatinine 0.5, glucose 90, calcium 7.6, magnesium 2.5. WBC 4.5, H and H 10.8 and 30.9, platelets 280, neutrophils 61%. Blood cultures, no growth to date. Assessment: 73-year-old female with; 1. Generalized weakness. We will encourage p.o. intake. Start on Megace. Dietary consult. 2. Intractable nausea and vomiting. We will start on Protonix IV and switch to Phenergan. states the Zofran does not appear to be working. Ffailed out pt treatment. 3. Diarrhea, resolved. 4. History of breast cancer, chronic with metastasis to the bone. We will obtain MRI of the brain to rule out brain metastasis. Dr. Kinney has been consulted. She will see the patient this afternoon. 5. Hypothyroidism. We will continue Synthroid. 6. Acute metabolic encephalopathy. MRI brain to rule out brain mets 7. Deep vein thrombosis prophylaxis. We will start on Lovenox. Plan: wants the patient to go to rehab; however, patient has not moved out of the bed for the past 3 days since being admitted, unrealistic expectations from the family regarding physical therapy. seems to want patient to be get back to her baseline status. However, according to Oncology, who has been taking care of the patient for the past 5 to 7 years, states she has been on a steady decline. Hospice may be an option for the patient as she is not willing to work with PT, has no appetite, and is not motivated to work with Physical Therapy. Doubt Xgeva causing any symptoms, last dose was 2 weeks ago. Case Management consult. Patient will likely benefit from palliative care or hospice care. We will have Oncology make recommendations to the family and followup. ADDENDUM: MRI brain reviewed and discussed with Dr. Kinney. Patient has left temporal lesion approx 3x2cm lesion and diffuse leptomeningeal carcinomatosis. Overall very poor prognosis. Dr. Kinney to discuss with radiation oncologist regarding palliative radiation vs hospice. A/P: 8. Leptomengial carcnimatosis. MRI shows brain mets with edema, left temporal lobe lesion approx 3x2 cm: Start on IV dexamethasone. 9. Intractable N/V due to central etiology. /DESIREE Voice ID: [id number] Report ID: [id number] [facility]
[2019-01-19] MEDS: MEGESTROL 400 MG/10 ML UCUP PO SCH (20:33)
[2019-01-20] MEDS: dexAMETHasone 4 MG/ML VIAL IV SCH ×3 (00:02→16:44)
[2019-01-20 05:56] LABS: Urine Appearance CLEAR; Urine Bilirubin NEGATIVE (NEG); Urine Blood TRACE (NEG); Urine Color YELLOW; Urine Glucose NEGATIVE (NEG); Urine Protein NEGATIVE (NEG); Urine Specific Gravity 1.015 (1.005-1.030); Urine Urobilinogen 0.2 mg/dL (0.2-1.0)
[2019-01-20 05:58] LABS: Urine Microscopic Reflex ORDER UMIC
[2019-01-20] MEDS: THYROID 30 MG TAB PO SCH (06:02)
[2019-01-20] MEDS: PROMETHAZINE 25 MG/ML VIAL IV PRN (06:02)
[2019-01-20 06:03] LABS: BUN Blood Urea Nitrogen 19 mg/dL (7-18); Bicarbonate 23 mmol/L (21-32); Glucose Level 112 mg/dL (74-106); Potassium 3.4 mmol/L (3.5-5.1); Sodium Level 144 mmol/L (136-145)
[2019-01-20 06:14] LABS: Urine Bacteria >50 /HPF (<20); Urine Culture Reflex Order REFLEXED; Urine RBC NONE SEEN /HPF (NONE SEEN)
[2019-01-20] MEDS: KCL 20 MEQ/100 mL IVPB 20 MEQ/100 ML BAG IV SCH ×2 (07:14→10:00)
[2019-01-20] MEDS ORDERED: NA CHLORIDE 0.9% 250 ML ONE (07:17)
[2019-01-20] MEDS: ENOXAPARIN 40 MG/0.4 ML SQ SCH (09:00)
[2019-01-20] MEDS: MEGESTROL 400 MG/10 ML UCUP PO SCH ×2 (10:26→22:08)
[2019-01-20] MEDS: PANTOPRAZOLE 40 MG INJ IVP SCH (10:31)
[2019-01-20] MEDS: ENSURE ENLIVE 237 ML CAN PO SCH ×2 (10:31→21:00)
[2019-01-20] MEDS ORDERED: MORPHINE 2 MG/ML SYR IV PRN (13:15)
--- NOTE | 2019-01-20 15:53 | PN ---
Date of Progress Note: 01/20/2019 Subjective: Patient seen and examined. Chart reviewed and case discussed with RN and Dr. Kinney. Family updated regarding MRI results of the brain. They understand the overall poor prognosis, that comes with this news. Dr. Kinney will be visiting with them this afternoon for further options regarding treatment versus palliative care. Medications: List reviewed. Physical Examination: Vital Signs: Temperature 97.9, heart rate 87, blood pressure 138/65, respirations 17, O2 98% on room air. General: Awake, alert, in some mild distress, ill-appearing elderly female, frail. CV: S1, S2. Regular rate and rhythm. Peripheral pulses present. Respiratory: Moving air well bilaterally. Some diminished breath sounds at the bases. No wheezing or stridor. Gastrointestinal: Abdomen is soft, nontender, nondistended. Positive bowel sounds. Extremities: No clubbing, cyanosis, or edema. Neurologic: Nonfocal. Laboratory Data: Sodium 144, potassium 3.4, chloride 110, CO2 of 23, BUN 19, creatinine 0.56, glucose 112, calcium 7.8. WBC pending. Blood cultures show no growth to date. Urine cultures pending. MRI of the brain showed significantly limited study due to motion artifact, demonstrating findings of extensive leptomeningeal carcinomatosis. Large dural-based enhancing mass seen along the left anteromedial cranial fossa as described, size 30 x 19 mm with surrounding edema. Assessment And Plan: A 73-year-old female with: 1. Acute metabolic encephalopathy, likely multifactorial. Patient does have brain METS as well and edema, has been started on dexamethasone. 2. Leptomeningeal carcinomatosis. MRI shows left temporal lobe lesion as well. Patient has brain edema. Continue IV dexamethasone. Overall very poor prognosis. 3. Intractable nausea and vomiting, likely due to central etiology related to her metastatic breast cancer. Failed outpatient treatment We will continue with Phenergan. 4. Generalized weakness secondary to above. 5. Diarrhea, resolved. 6. History of breast cancer, chronic, now with metastases to bone and brain. Appreciate Dr. Kinney's input. She will be having a conference with the family. 7. Hypothyroidism. We will continue with Synthroid. 8. Hypokalemia. We will replace and monitor. 9. Deep venous thrombosis prophylaxis. Continue Lovenox. Plan: Patient's overall prognosis is very poor. She now has significant brain metastases. Recommend hospice. However, we will defer to Dr. Kinney, patient's oncologist who has been taking care of the patient for several years, as they can discuss options for further treatment versus palliative care. TATIANA Voice ID: [id number] Report ID: [id number] MTDD
--- NOTE | 2019-01-21 00:14 | CON ---
Reason For Consultation: Consultation called because of altered mental status. History Of Present Illness: Ms. Lima is a 73-year-old right-handed patient with metastati c breast cancer and hypothyroidism, who is admitted to the hospital with diffuse weakness, nausea, an d vomiting. The patient on imaging has extensive leptomeningeal involvement of likely metastatic coco ast cancer involving the posterior fossa and supratentorial region in addition to the left temporal l obe with enhancing metastatic lesion measuring about 30 x 20 mm. The patient's clinical symptoms do match circumstances of increased intracranial pressure, which is likely a major contributing factor t o the patient's clinical symptoms. She and Dr. Marino, the patient's oncologist, along with the [facility] list and the patient's are discussing how to move forward, which will include likely palliati ve treatment and hospice care given the extensive metastatic disease, which also includes bone metast ases in addition to the current brain metastases. At the time of my evaluation, the patient was in bed, in some [id number] distress and the patie nt's requested that she not be stimulated with too much interaction and questions. He wanted to discuss her case with Dr. Marino to decide on the further course of management. Past Medical History: Includes the breast cancer as indicated, lymphedema, hypothyroidism, diverticu losis, metastatic breast cancer to bone. Surgical History: Right chest Port-A-Cath, left mastectomy, hysterectomy, and bladder suspension. Family History: Positive for diabetes and cancer in father and cancers of the colon and stomach and hypertension in mother. Allergies: CODEINE, IODINE, AND PENICILLIN. Medications: [place] Thyroid 15 mg daily. She is receiving Decadron 4 mg every 8 hours, Lovenox 40 m g subcutaneously daily, Apresoline 10 mg every 6 hours, Megace 400 mg twice daily. Review of Systems: The patient as indicated was not stimulated. The case was discussed with the patient's at th e bedside. From review of systems per chart review, she does have diffuse weakness with nausea, vomi ting, diarrhea, and constipation. Otherwise, negative systems review. Physical Examination: Her vital signs show blood pressure 147/68, pulse 78, respiratory rate 18, temperature 97.9, oxygen s aturation 96%. The patient was resting in bed with knees pulled towards the dorsal chest area. She did move her head equally on either side. Arms did move equally, just a minor stimulation. She did not appear to have any seizure-like activity such as tonic or clonic activity. There was no asymmetr y of movement of face, arm, or legs. Laboratory Studies: White blood cell count 4.6, hemoglobin 10.8, hematocrit 30.9, platelets 280. El ectrolyte panel shows a low calcium of 7.9; potassium is corrected now to 3.7, was low at 3.4. Thyro id function studies unremarkable. Liver function studies show slightly elevated AST of 61. Assessment And Plan: Ms. Lima is a 73-year-old patient with likely widely metastatic breast cancer including the brain with leptomeningeal involvement and a large dural-based mass, which is measuring around 30 x 20 mm. The mass along with the leptomeningeal involvement would likely contribute to inc reased intracranial pressure by mass effect and by the reduction in resumption of cerebrospinal fluid . She is on IV Decadron, however, that is likely eventually be of limited value given the patient's expanding mass-effect and reduction in CSF absorption. At this point, it is more helpful for the pat ient to be on a hospice program with palliative treatment and comfort care. This was actually my adv ice to the patient's and while the patient was in bed. May consider antiepileptic medication s if there is evidence of tonic or clonic activity given the potential for brain irritation due to th e metastatic disease. If antiepileptic medications are considered, Keppra 500 mg twice daily will be helpful. Plan as indicated. Suggest Keppra 500 mg twice daily. Suggest hospice care with palliative pain management. Okay to continue the Decadron and furt her discuss case for hospice care. ALEX/DESIREE Voice ID: [id number] Report ID: [id number]
[2019-01-21] MEDS: dexAMETHasone 4 MG/ML VIAL IV SCH ×3 (01:11→16:01)
--- NOTE | 2019-01-21 02:29 | PN ---
Date of Progress Note: 01/20/2019 Subjective: Ms. Lima was more awake today when I saw her. Her , son and sister in law were at the bedside. She had complained of headache and had received Tylenol earlier today. She has been less nauseated and was able to drink a shake earlier without nausea or vomiting. Objective: Vital Signs: She remained afebrile. Temperature was 98.2, pulse 82 , respirations 18, blood pressure 144/68. Oxygen saturation is again in the mid 90s on room air. HEENT: Physical examination again reveals pallor. No icterus. No palpable lymphadenopathy. Chest: Clear to auscultation. Heart: Sounds remained normal with no gallops or murmurs. Neurologic: She is more awake and alert, able to understand questions and respond verbally in short sentences. An MRI of the brain was done yesterday. It revealed an avidly enhancing mass in the left temporal lobe measuring 30 x 19 mm along the dura with surrounding edema and diffuse extensive leptomeningeal enhancement suggestive of leptomeningeal carcinomatosis. No midline shift was seen. There was no evidence of acute hemorrhage. Assessment And Plan: 1. Leptomeningeal carcinomatosis. She has developed extensive leptomeningeal disease, which is the cause of her current decline and symptoms. I shared the results and explained those to her and her family at the bedside. She benefitted from the dexamethasone started intravenously yesterday and I would suggest we continue on dexamethasone 4 mg p.o. t.i.d. upon discharge. We discussed that her overall condition is exceedingly poor and that chemotherapy is no longer an option. She and her family are well aware that this is incurable disease and has been since diagnosis in 2011. I have recommended best supportive care in the setting of hospice and the and patient agree. He would also like for her to obtain nursing care at [facility], and we will consult Case Management to help coordinate both residential placement and hospice consultation. The patient has expressed a desire to be a do not resuscitate and has discussed this with her . I will place an order for do not attempt resuscitation in her chart. I would also suggest that she continue on a proton pump inhibitor upon discharge and ondansetron 4 mg q.6 hours p.r.n. for nausea. I spent a total of 30 minutes with the patient and family (, son, and her [id number]) discussing the above, answering their questions, and coordinating care. CASH/DESIREE Voice ID: [id number] Report ID: [id number] MTDD
--- NOTE | 2019-01-21 03:39 | PN ---
Date of Progress Note: 01/19/2019 Reason For Consultation: Metastatic breast cancer. Brief History Of Present Illness: Ms. Lima is a 73-year-old lady with metastatic breast cancer who has been followed by me in the Oncology Clinic in October 2011. She had multiple bone metastases at presentation and was initially treated at our clinic along with [facility]. She has been on numerous courses of chemotherapy, most recently on Taxol weekly, 2 weeks on and 1 week off. She was hospitalized on the 17 of January for the second time, this time for intractable nausea, vomiting, dehydration, and weakness. Her said that she was constipated following the last chemotherapy on the 06 of January when she also received Xgeva injection for bone metastases. According to him, a few days after the initial constipation she suddenly declined and became extremely weak, unable to support herself and even incontinent. This was followed by poor intake and nausea. He brought her to the emergency room where she was admitted for the first time for dehydration and symptomatic management. After 2 days of hydration and intravenous medication, she was discharged home. After a little to no improvement at home, she suddenly declined and he had to bring her back to the emergency room. Subjectively, Ms. Lima continues to be somewhat lethargic and somnolent, she is not eating much and is nauseated most of the time. When I saw her, she had thrown up early in the morning following which she had received Phenergan and ondansetron. Her responses were slow, but she denied any significant pain other than pointing to her throat. Objective: Vital Signs: Reveal that she has been afebrile. Temperature was 97.1 at noon, pulse 90, respirations 17, blood pressure 167/80, saturating in the mid 90s on room air. General: Reveals a pale woman who was somnolent and lethargic. There is no evidence of icterus. Oral: Examination revealed no mucositis or thrush. Lymph Node: Survey reveals no palpable lymphadenopathy. Chest: Clear to auscultation. Heart: Sounds reveal normal S1, S2. No gallops or murmurs. Abdomen: Soft and nontender with no rebound or rigidity. Liver and spleen were not palpable. Neurologic: Ms. Lima was not her usual self. She appeared lethargic. Speech was slurred. There was no obvious facial deviation or pupillary changes. Motor strength was decreased in all extremities. Laboratory Data: White count was 4500 earlier today, hemoglobin 10.8, platelet count was 280,000. Chemistry reveals hypokalemia. Her potassium has been running on the low side. It was 3.1 today for chloride of 110. Sodium was 140. BUN and creatinine were normal. Assessment And Plan: 1. Altered mental status with intractable nausea and vomiting. Given the history of metastatic breast cancer, I am extremely concerned about the possibility of brain metastases. I had spoken to Dr. Jiménez earlier today regarding ordering an MRI scan stat to evaluate for brain lesions or meningeal carcinomatosis. If the MRI scan is unremarkable, then she should get a lumbar puncture to rule out malignant cells and/or bacterial or viral infections and a GI evaluation to rule out gastritis and/or ulcer. I would continue IV fluids and supportive medications such as Phenergan and ondansetron for now. Would also continue Protonix. 2. Metastatic breast cancer. She has stage IV breast cancer for a long time and has done well until now, though clinically she has somewhat slowly been declining for the past year. The plan is to get a PET/CT as an outpatient to re-stage her disease if the above symptoms resolve and meningeal and brain disease is ruled out. I discussed this plan with Ms. Lima and one of her sons who are at the bedside today. CASH/DESIREE Voice ID: [id number] Report ID: [id number] MTDD
[2019-01-21] MEDS: THYROID 30 MG TAB PO SCH (05:59)
[2019-01-21] MEDS: MEGESTROL 400 MG/10 ML UCUP PO SCH (09:00)
[2019-01-21] MEDS: ENSURE ENLIVE 237 ML CAN PO SCH (09:00)
[2019-01-21] MEDS: PROMETHAZINE 25 MG/ML VIAL IV PRN ×2 (09:23→15:58)
[2019-01-21] MEDS: PANTOPRAZOLE 40 MG INJ IVP SCH (09:23)
[2019-01-21] MEDS: ENOXAPARIN 40 MG/0.4 ML SQ SCH (09:23)
[2019-01-21 11:47] VITALS: O2SAT 95
[2019-01-21 17:57] VITALS: BP 160/72; TEMP 98.2
--- NOTE | 2019-01-22 03:07 | DS ---
Date of Discharge: 01/21/2019 Consultants: Dr. Kinney with Oncology, Dr. Saxena with Neurology. Admitting Diagnoses: 1.Intractable nausea, vomiting, failed outpatient treatment. 2.Generalized weakness. 3.Acute dehydration. 4.History of breast cancer with bone metastases. 5.Hypothyroidism. Discharge Diagnoses: 1.Acute metabolic encephalopathy, likely related to brain metastases. 2.Leptomeningeal carcinomatosis. MRI reviewed. Also has left upper lobe lesion 3 x 2 cm approximat eve causing mass effect and edema. Has been on IV dexamethasone. This is an incurable disease. No further options for chemotherapy or radiation therapy. 3.Intractable nausea and vomiting due to central etiology, failed outpatient treatment. 4.Diarrhea, resolved. 5.History of breast cancer with metastases to the bone and now to the brain. 6.Hypothyroidism. Hospital Course: Patient is a 73-year-old female with past medical history of metastatic breast canc er to the bone, who has been on chemo and radiation therapy off and on, who has been declining over t he past year. Patient has been on chemotherapy on and off, comes in with generalized weakness, dehyd ration due to intractable nausea and vomiting. Patient's symptoms did not improve with outpatient tr eatment. There was a concern that the patient's medications Xgeva was causing symptoms, however last dose was 2 weeks prior to admission. Patient was started on IV fluids. She did have some electroly te abnormalities, which were corrected. Patient was initially seen by Dr. Naik under the [facility] t service. However, family requested second opinion and therefore I was requested to see the patient . I consulted Dr. Kinney with Oncology as patient's oncologist, recommended MRI of the brain due to he r altered mental status. Patient was found to have diffuse leptomeningeal carcinomatosis and left te mporal lobe mass also originating from the dura with mass effect, she was started on IV Decadron. Du e to her poor appetite, Megace was started. The patient perked up slightly, however, continues to de aiken. She has no shape to perform any sort of rehab. She has been unable to get out of bed. Her b lood cultures remained negative. Her urine cultures are pending. She was also seen by Dr. Saxena with Neurology due to altered mental status. Did recommend Keppra as needed for seizures. Dr. Kinney then recommended palliative care and hospice care to the family as this is incurable disease with rap id decline with average prognosis of 6-12 weeks. Family therefore made the patient do not resuscitat e and wish to take her to [facility] with private pay for hospice through [employer]. Patient was th en discharged to hospice care. Her condition is serious, has an overall very poor prognosis. Medications: As per medication reconciliation list. Diet: As tolerated, careful hand feeding. Activity: As tolerated. Followup: Follow up with hospice physician. Physical Examination: General: Asleep, but arousable, in some mild distress, lethargic, ill-appearing, frail female, orien carine to self and place. CV: S1, S2. Respiratory: Diminished breath sounds at the bases. Gastrointestinal: Abdomen is soft, nontender, nondistended. Positive bowel sounds. Extremities: No clubbing, cyanosis, edema. Neurologic: Nonfocal. Overall has generalized weakness. Total time spent discharging the patient was 45 minutes. /DESIREE Voice ID: [id number] Report ID: [id number]
== END 2019-01-21 18:50 | disposition hospice, inpatient (51) | DRG 640 ==
LOC: ER 12:14 → ERHOLD 14:39 → 2ND 18:10 → OBSVTOIN 01-20 13:02
PROVIDERS: ADMIT Family Medicine; ATTEND Family Medicine
DX: E86.0 Dehydration (principal); G93.41 Metabolic encephalopathy; C78.02 Secondary malignant neoplasm of left lung; C79.51 Secondary malignant neoplasm of bone; C79.31 Secondary malignant neoplasm of brain; R53.1 Weakness; R11.2 Nausea with vomiting, unspecified; R19.7 Diarrhea, unspecified; E03.9 Hypothyroidism, unspecified; E87.6 Hypokalemia; Z85.3 Personal history of malignant neoplasm of breast
CPT/HCPCS: 36415; 70553; 71045; 80048; 80076; 81003; 81015; 82947; 83690; 83735; 83880; 84132; 84436; 84439; 84443; 84480; 84484; 85025; 85610; 87040; 87077; 87086; 87088; 87186; 93005; 96361; 96374; 96375; 99285; A9577; C9113; G0378; J0360; J1650; J2270; J2405; J2550; J7030